=== PATIENT | female | born 1955 | race Native Hawaiian/Other Pacific Islander ===

== ENCOUNTER → 2021-01-07 15:26 | Outpatient (CLI) | payer BC, SELFPAY ==
--- NOTE | 2021-01-07 15:32 | RAD_ITS ---
STUDY: X-RAY CHEST REASON FOR EXAM: Female, 65 years old. increased dyspnea and cough, Hx lung CA TECHNIQUE: PA and lateral views of the chest. COMPARISON: None. FINDINGS: Small right pleural effusion. Airspace disease in the right parahilar region is suspicious for malignancy, as per patient history. Superimposed postobstructive pneumonia cannot be excluded without prior comparison studies. Mild patchy airspace disease on the left is suspicious for pneumonia. Normal size heart. Normal mediastinum and ciera. Normal visualized pulmonary arteries. Normal visualized aortic arch and descending thoracic aorta. Normal visualized thoracic spine. Normal visualized ribs, clavicles, and shoulders. There is no demonstrated abnormality of the visualized soft tissue structures of the upper abdomen. RAD/Chest PA and Lateral IMPRESSION: 1. Small right pleural effusion. 2. Airspace disease on the right is consistent with known malignancy with possible superimposed pneumonia. 3. Patchy airspace disease on the left is suspicious for pneumonia. Electronically Signed: Tammi Barros MD at 16:33 EST Tel , Service support ,
--- NOTE | 2021-01-07 15:33 | RAD_ITS ---
STUDY: X-RAY CHEST REASON FOR EXAM: Female, 65 years old. increased cough and dyspnea, Hx lung CA - chemo TECHNIQUE: Bilateral decubitus views. COMPARISON: None. FINDINGS: Moderate, freely layering right pleural effusion. No left effusion. Right parahilar opacity suspicious for reported malignancy. Superimposed/postobstructive pneumonia is not excluded. Patchy opacities in the left lung are suspicious for pneumonia, better demonstrated on PA chest. Normal size heart. Normal mediastinum and ciera. Normal visualized aortic arch and descending thoracic aorta. RAD/Special CXR (Obl/Decub/A/L) IMPRESSION: 1. Layering right pleural effusion. 2. Presumed right parahilar malignancy with possible superimposed pneumonia. 3. Probable pneumonia on the left. Electronically Signed: Tammi Barros MD at 16:35 EST Tel , Service support ,
== END ==
PROVIDERS: PCP Internal Medicine; Referring Provider Internal Medicine Pulmonary Disease; Visit Provider Internal Medicine Pulmonary Disease
DX: R06.00 Dyspnea, unspecified (principal); R05 Cough
CPT/HCPCS: 71046

== ENCOUNTER → 2021-01-08 15:59 | Outpatient (CLI) | payer BC, SELFPAY ==
--- NOTE | 2021-01-08 | IMM_PTH ---
PATIENT: HÉCTOR DANIEL LOC: U#:[id number] AGE/SX: 70/F ROOM: RE01/08/[address]: Dr. Ad Bradford MD : 1955 BED: DIS: SPEC #: [id number] RECD: 01/13/21 09:55 STATUS: RYLEE REQ #: [id number] BRUNO: 01/08/21 00:[address]: Ad Bradford V DEPT: IMMUNOHISTOCHEMISTRY RECD BY: Mary Aguirre ENTERED: 01/13/21 09:57 SP TYPE: IMMUNO OTHR DR: Dr. Terrance De La Cruz MD Tissues: THORACIC FLUID Procedures: RCC (add) NAPSIN A (add) [place] Ret (add) CK20 (add) CK5-6 (add) CK7 (add) CK8 (add) GARCÍA-2 (add) HEP PAR (add) MACRO (add) ND (add) TTF1 (add) Vimentin (add) Pankeratin (add) P40 (add) CDX2 (add) ER (initial) PHYSICIAN & INSTITUTION [address] [address] SPECIMEN INFORMATION: Tissue Source: Thoracentesis fluid Clinical Info: Adenocarcinoma lung Specimen Number: [id number] CPT code: 36436, 45262 x16 METHODOLOGY: Deparaffinized sections of prefer/formalin-fixed tissue or PAP/DQ stained slides are incubated with monoclonal/polyclonal antibodies/oligonucleotide probes. Localization is made via biotin free immunoperoxidase method. Appropriate controls are performed and reacted as expected. Results on target cell population are indicated in the following table: RESULTS: ANTIBODY / CLONE RESULT ER (6F11) negative ND (1E2) negative AE1-3 (AE1/AE3/PCK26) positive CK7 (OV-TL12/30) positive CK8 (29jpepP74) positive CK20 (KS20.8) negative GARCÍA-2 (SP21) positive CDX2 (YAD0034N) negative Vimentin (V9) negative Macro (HAM-56) negative TTF-1 (8G7G3/1) positive Napsin A (Rabbit Polyclonal) positive HepPar (OCh1E5) negative RCC (PN-15) negative CALRET (polyclonal) negative CK5-6 (D5 & 1684) negative P40 (BC28) negative These tests were developed and their performance characteristics determined by [facility]. They may not have been cleared or approved by the U.S. Food and Drug Administration. The FDA has determined that such clearance or approval is not necessary. The above immunohistochemical/dualISH markers are ordered and reviewed by the Pathologist. INTERPRETATION: Thoracentesis fluid: Malignant cells present derived from non-small cell carcinoma, favor adenocarcinoma, consistent with lung primary. SJ:isa 01/14/2021
--- NOTE | 2021-01-08 | FLU_PTH ---
PATIENT: HÉCTOR DANIEL LOC: [facility]#:[id number] AGE/SX: 70/F ROOM: RE01/08/[address]: Dr. Ad Bradford MD : 1955 BED: DIS: SPEC #: [id number] RECD: 01/08/21 17:51 STATUS: RYLEE REShin #: [id number] BRUNO: 01/08/21 00:[address]: Ad Bradford V DEPT: CYTOLOGY RECD BY: Markell Romero ENTERED: 01/09/21 07:26 SP TYPE: Fluid OTHR DR: Dr. Terrance De La Cruz MD Tissues: Thyroid gland, NOS Procedures: Special Stain Group II Surgery Specimen Level IV Cytospin Fluid HEADER OPERATION: Thoracentesis right chest PRE-OP DIAGNOSIS: Adenocarcinoma lung TISSUE SUBMITTED: Thoracentesis fluid for cytology DIAGNOSIS CYTOLOGY Thoracentesis fluid for cytology (cytospin and cell block): Malignant cells present derived from non-small cell carcinoma, favor adenocarcinoma, consistent with lung primary. See comment. SJ:isa 01/10/2021 COMMENT Immunohistochemistry ([id number]) supports the above diagnosis. Clinical correlation and appropriate follow up are necessary. CYTOLOGY STUDY Slides are reviewed. CYTOLOGY GROSS Received is 100 ml of yellow cloudy fluid labeled with the patient's name and and designated per the requisition as thoracentesis. Submitted for cytology preparation including cell block. / isa 01/09/2021 TC:0 CPT: 50960, 16236
--- NOTE | 2021-01-08 16:01 | US_ITS ---
PROCEDURE: ULTRASOUND GUIDED THORACENTESIS. DATE: 01/08/2021.. INDICATION: Female, 65 years old. Right pleural effusion. PHYSICIAN: Pulmonary physician PROCEDURE: The risks, benefits, and alternatives to the procedure were explained to the patient. The specific risks of bleeding, infection, and pneumothorax requiring chest tube insertion were discussed and accepted. Written informed consent was obtained. Ultrasonographic evaluation of the right lower pleural space was carried out. An adequate pocket was identified. The patient was placed in the sitting, upright position. The overlying skin was prepped and draped in sterile fashion. 1% lidocaine was administered subcutaneously for local anesthesia. Under ultrasound guidance, a 5 Divehi thoracentesis needle/catheter system was advanced into the right posterior lower pleural fluid collection. Approximately 39 mL of lupillo-colored fluid was drained. The catheter was removed, and a sterile dressing was applied. The patient tolerated the procedure well. A chest x-ray was ordered. US/Thoracentesis W US IMPRESSION: Ultrasound-guided right thoracentesis. Electronically Signed: David Arauz MD at 8:08 EST , Service support ,
--- NOTE | 2021-01-08 17:20 | RAD_ITS ---
STUDY: X-RAY CHEST REASON FOR EXAM: Female, 65 years old. post thora TECHNIQUE: PA and lateral COMPARISON: 01/07/2021 FINDINGS: There are patchy areas of increased opacity in the left upper and lower lobes with more more pronounced atelectasis or infiltrate in the right upper and middle lobes.. There is a tiny right pleural effusion.. Normal size heart. Normal mediastinum and ciera. Normal visualized pulmonary arteries. Normal visualized aortic arch and descending thoracic aorta. Dorsal spine demonstrates degenerative change. Normal visualized ribs, clavicles, and shoulders. There is no demonstrated abnormality of the visualized soft tissue structures of the upper abdomen. Right pleural effusion has decreased in size and there is improved aeration in the right lower lobe since prior study. There is no pneumothorax. RAD/Chest Insp/Exp 2 View IMPRESSION: Interval reduction in size of the right pleural effusion and improved aeration in the right lower lobe status post thoracentesis without evidence for pneumothorax Electronically Signed: Luis Lloyd MD at 18:11 EST , Service support ,
== END ==
PROVIDERS: PCP Internal Medicine; Referring Provider Internal Medicine Pulmonary Disease; Visit Provider Internal Medicine Pulmonary Disease
DX: J90 Pleural effusion, not elsewhere classified (principal)
CPT/HCPCS: 32555; 71046; 88108; 88305; 88313; 88341; 88342

== ENCOUNTER → 2021-01-30 13:00 | Outpatient (CLI) | payer MEDICARE, OTHER, SELFPAY ==
--- NOTE | 2021-01-30 13:05 | US_ITS ---
PROCEDURE: ULTRASOUND GUIDED THORACENTESIS. DATE: 01/30/2021. INDICATION: Female, 66 years old. Right pleural effusion PROCEDURE: The risks, benefits, and alternatives to the procedure were explained to the patient. The specific risks of bleeding, infection, and pneumothorax requiring chest tube insertion were discussed and accepted. Written informed consent was obtained. Ultrasonographic evaluation of the right lower pleural space was carried out. An adequate pocket was identified. The patient was placed in the sitting, upright position. The overlying skin was prepped and draped in sterile fashion. 1% lidocaine was administered subcutaneously for local anesthesia. Under ultrasound guidance, a 5 Estonian thoracentesis needle/catheter system was advanced into the right posterior lower pleural fluid collection. Approximately 1500 mL of lupillo-colored fluid fluid was drained. The catheter was removed, and a sterile dressing was applied. The patient tolerated the procedure well. A chest x-ray was ordered. US/Thoracentesis W US IMPRESSION: Ultrasound-guided right thoracentesis. Electronically Signed: David Arauz MD at 14:47 EDT , Service support ,
[2021-01-30 13:28] VITALS: BP 100/77; BP 105/69; BP 116/85; BP 117/99; PULSE 104; PULSE 95; PULSE 96; PULSE 98; RESP 20; TEMP 36.9; O2SAT 100; O2SAT 98; O2SAT 99
--- NOTE | 2021-01-30 14:20 | RAD_ITS ---
STUDY: X-RAY CHEST REASON FOR EXAM: Female, 66 years old. Post thora; rt side TECHNIQUE: AP inspiration and expiration views. COMPARISON: Comparison is made with prior study of 01/04/2021. FINDINGS: The patient is status post right thoracentesis. No evidence of pneumothorax on the post right thoracentesis images. Stable multiple nodules in the left lung as well as infiltrates in the right lung. RAD/Chest Insp/Exp 2 View IMPRESSION: Status post right thoracentesis. No evidence of pneumothorax. Electronically Signed: David Arauz MD at 14:46 EDT , Service support ,
== END ==
PROVIDERS: PCP Internal Medicine; Visit Provider Internal Medicine Pulmonary Disease
DX: J90 Pleural effusion, not elsewhere classified (principal)
CPT/HCPCS: 32555; 71046

== ENCOUNTER 2021-02-16 20:56 | Inpatient (IN) | payer MEDICARE, OTHER, SELFPAY ==
[2021-02-16] VITALS (7 sets, daily range): BP systolic 129–177; BP diastolic 72–103; PULSE 120–130; RESP 12–34; TEMP 36.6; O2SAT 82–96; BMI 20.1
--- NOTE | 2021-02-16 21:21 | RAD_ITS ---
STUDY: X-RAY CHEST REASON FOR EXAM: Female, 66 years old. Dyspnea TECHNIQUE: Single AP portable view of the chest. COMPARISON: 01/30/2021. FINDINGS: Large right pleural effusion. Extensive right lung opacity consistent with pleural effusion and underlying mass or pneumonia. Patchy opacities in the left lung show no significant change from the prior study. Normal size heart. Soft tissues and bony structures are unremarkable. RAD/Chest 1 View (Portable) IMPRESSION: 1. Large right pleural effusion with underlying mass and/or pneumonia. 2. Opacities in the left lung suspicious for malignancy. Please correlate. Electronically Signed: Tammi Barros MD at 22:21 EDT Tel , Service support ,
--- NOTE | 2021-02-16 21:21 | EKG12_ITS ---
Test Reason : SOB Blood Pressure : / mmHG Vent. Rate : 123 BPM Atrial Rate : 123 BPM P-R Int : 128 ms QRS Dur : 092 ms QT Int : 340 ms P-R-T Axes : 058 258 076 degrees QTc Int : 486 ms Sinus tachycardia Possible Left atrial enlargement Right superior axis deviation Pulmonary disease pattern Abnormal ECG Confirmed by ARELY CARRENO, NGOZI ([id number]), restaurant expeditor PETEY MATTA ([id number]) on 02/19/2021 7:54:09 AM Referred By: MARILYNN Confirmed By:NGOZI MCGEE MD
[2021-02-16 21:33] LABS: Absolute Lymphocyte Count 0.19 X10^3/uL (0.83-4.51); Absolute Neutrophil Count 17.8 X10^3/uL (2.0-7.7); Basophil# 0.03 X10^3/uL; Basophil% 0.2 % (0-1); Eosinophil# 0.06 X10^3/uL; Eosinophils% 0.3 % (0-5); Hematocrit 37.2 % (37-47); Hemoglobin 13.5 g/dL (12.0-15.0); Lymphocyte # 0.19 X10^3/ul (4.0); Mean Corp Hgb Conc 36.3 g/dL (32-36); Mean Corpuscular Hgb 30.5 pg (27.0-32.0); Mean Platelet Vol. 7.9 fl (6.2-12.0); Monocyte# 0.89 X10^3/uL; Monocyte% 4.7 % (0-10); NRBC Flagged by Analyzer 0 % (0-5); Neutrophil # 17.81 X10^3/uL (2.7-7.7); Neutrophil % 93.3 % (47-70); POSITIVE DIFFERENTIAL YES; Platelet Count 353 K/mm3 (150-450); RBC Distribution Width CV 13.8 % (11.6-14.6); RBC Distribution Width SD 42.6 fl (35.1-43.9); Red Blood Count 4.43 M/mm3 (4.2-5.4); White Blood Count 19.1 K/mm3 (4.4-11.0)
[2021-02-16] MEDS: Ipratropium/Albuterol Sulfate 3 ML AMPUL.NEB INHALATION (21:37)
[2021-02-16 22:22] LABS: Differential Indicated SCAN CRITERIA MET
[2021-02-16 22:30] LABS: ALB/GLOB Ratio 0.7 RATIO (0.9-2.4); AST(SGOT) 37 U/L (15-37); Alanine Aminotransfer ALT/SGPT 34 U/L (13-56); Albumin, Serum 2.6 g/dL (3.2-5.0); Alkaline Phosphatase 132 U/L (45-117); Anion Gap 10 (5-15); BUN 17 mg/dL (7-18); Calcium,Total 6.8 mg/dL (8.5-10.1); Creatinine, Serum 0.45 mg/dL (0.55-1.02); EST Glomerular Filtration Rate 150 mL/min (>60); Est Glom Filt Rate - Afr Amer 181 mL/min (>60); Estimated Creatinine Clearance 98.17 ml/min; Globulin 3.5 g/dL (2.2-4.2); Glucose 196 mg/dL (74-106); Potassium 3.5 mmol/L (3.5-5.1); Protein, Total 6.1 g/dL (6.4-8.2)
[2021-02-16 22:33] LABS: Sodium Level 110 mmol/L (136-145)
[2021-02-16 22:34] LABS: Chloride 74 mmol/L (98-107)
[2021-02-16 22:38] LABS: Lactic Acid 2.4 mmol/L (0.4-1.9)
[2021-02-16 22:42] LABS: International Normalized Ratio 1.2; Prothrombin Time (Protime)PT. 14.5 SECONDS (11.7-14.9)
[2021-02-16 22:43] LABS: Partial Thromboplast Time 31.7 Seconds (24.1-36.2)
--- NOTE | 2021-02-16 22:52 | ED.VISSUMM ---
- ER Visit Summary Date of Service: 02/16/21 Chief Complaint: Shortness of breath History of Present Illness: The patient is a 66 F who presents with shortness of breath that became worse today. Patient states it is gradually getting worse. Patient states it is worse with any exertion and with laying flat. Patient states it improves with oxygen. Patient states she has a history of lung cancer and prior pleural effusions. She states she did have a recent thoracentesis. Patient states that she feels like this is another large pleural effusion. Patient denies any fevers or chills. Patient denies any chest pain. Patient does admit to a cough with some clear sputum. Patient denies any nausea or vomiting. Physical Examination: Vital signs are stable except for tachycardia of 130 and tachypnea of 34. Pulse oximeter is 82% on 4 L nasal cannula. Patient was immediately bumped to 50% Ventimask. Patient was then increased to a nonrebreather mask. Oral mucosa is pink and moist. Neck is supple. Trachea is midline. There is moderate JVD. Heart was regular and tachycardic. Lungs are diminished on the right. Abdomen is soft. Bowel sounds are normal. There is no tenderness. Extremities are intact. There is no calf tenderness. There is trace edema bilaterally. Cranial nerves II through XII are intact. There are no focal motor or sensory deficits noted. Test Results: EKG was obtained. On my interpretation, it showed a sinus tachycardia of 123. SC interval, QRS interval, and QTc interval were normal. [place] was normal. There are no acute ST or T wave changes. CBC shows a leukocytosis of 19.1. Comprehensive metabolic profile shows a sodium of 110 and chloride of 74. Glucose was slightly elevated at 196. Creatinine was 0.45. Alk phos was slightly elevated 132. Troponin was slightly elevated at 0.223. Chest x-ray was obtained. Is 1 view. On my interpretation, there is a large right pleural effusion. There are also left lung opacity suspicious for malignancy. There is no cardiomegaly. Bony thorax is normal. Radiologist also interpreted the x-ray and agrees. Emergency Department Course and Treatment: Patient was given a DuoNeb aerosol. Patient was increased to nonrebreather mask. Patient was then placed on BiPAP. Patient was given 3% hypertonic saline. Patient was cussed with the hospitalist. He will admit the patient to ICU. Patient and family understood and were agreeable with the plan. All questions were answered. Disposition: Admit to ICU Impression: 1. Right pleural effusion 2. Hypoxia 3. Hyponatremia 4. Leukocytosis 5. Elevated troponin 6. History of lung cancer Critical care time: 30 minutes. This was time spent obtaining history, performing physical examination, documenting, interpreting test results, discussion with consultants, and determining disposition. This note was generated with No[employer] Traveller dictation software. It may contain incorrect words, spelling, and punctuation that were not noted in review of the chart prior to signing ED Disposition - Plan for ED Patient: Disposition: Acute Care Hospital [facility] Diagnosis: Pleural effusion on right, Hypoxia, Hyponatremia, Leukocytosis, Elevated troponin, Lung cancer Referrals: Terrance De La Cruz MD [Primary Care Provider] -
[2021-02-16] MEDS: Sodium Chloride 3% 500 ML 60 ML IV (23:01)
--- NOTE | 2021-02-16 23:07 | HP.PCM_ITS ---
Problem List (1) Elevated troponin Status: Acute (2) Hyponatremia Status: Acute (3) Hypoxia Status: Acute (4) Leukocytosis Status: Acute (5) Lung cancer Status: Chronic (6) Pleural effusion on right Status: Acute History of Present Illness Date of Admission: 02/16/21 Chief Complaint: Shortness of breath The patient is a 66 year old F with a significant history of lung cancer who presents to the emergency department with 2-day history of progressively worsening shortness of breath. Associated with his symptoms is productive cough of clear sputum. Further, she feels weak; she has poor appetite and she is fatigued. Chronically she get thoracentesis for pleural effusion. Her last thoracentesis was about 4 days ago. She felt relieved after her past thoracentesis. She correlates her symptoms with episodes where she had pleural effusion. At emergency department on 4 L patient oxygen saturation was 83%. She was transitioned to Venturi mask and then to nonrebreather max and finally onto BiPAP. She has lung cancer and she is enrolled in clinical trials at [facility] in [place]. Her next appointment with the [facility] is on 02/18/2021 She follows up locally with Dr. Bradford, logistics operations manager. Past Medical History Past Medical History (Chronic Problems): Chronic Problems (Last Reviewed 02/16/21 @ 23:[address] Eduardo Jones MD) Lung cancer (Chronic) Medical History: Medical History (Last Reviewed 02/17/21 @ 05:[address] Eduardo Jones MD) Lung cancer C34.90 Allergies No Known Allergies Allergy (Verified 02/16/21 21:00) Home Medications: Ambulatory Orders Medication Instructions Recorded Calcium Carbonate [Oyster Shell 1 tablet PO DAILY 02/16/21 Calcium] Diltiazem HCl [Cartia Xt] 1 tablet PO DAILY 02/16/21 Levothyroxine [Synthroid] 88 mcg PO DAILY 02/16/21 Metoprolol Succinate 25 mg PO DAILY 02/16/21 Surgical History: - - Thyroidectomy Smoking Status: Never smoker - *Family History Maternal History Items: Cancer Paternal History Items: - - Denies knowledge of paternal medical history. Reportedly her father was tortured to in outside country. Review of Systems Constitutional: Reports: Anorexia, Weakness, Fatigue. Denies: Chills, Fever, Weight Change HEENT: Denies: Head Aches, Sinus Congestion, Sinus Drainage Cardiovascular: Reports: Edema. Denies: Chest Pain, Palpitations Respiratory: Reports: Cough, Shortness of Breath, Sputum production Gastrointestinal: Denies: Abdominal Pain, Nausea, Vomiting Genitourinary: Denies: Dysuria Musculoskeletal: Denies: Joint Pain, Joint Tenderness Skin: Denies: Rash, Wounds Neurological: Denies: Numbness, Tingling, Focal weakness Psychiatric: Denies: Anxiety, Depression, Homicidal Ideations, Suicidal Ideations Hematologic/ Lymphatic: Denies: Easy Bruising, Easy Bleeding VTE Information - Inpt Only VTE Present on Admission: No VTE Mechan Device Prophylaxis: SCD's VTE Pharm Prophylaxis ordered?: No Patient Problems: Active and Suspected Problems (Last Reviewed 02/16/21 @ 23:[address] Eduardo Jones MD) Pleural effusion on right (Acute) Hypoxia (Acute) Hyponatremia (Acute) Leukocytosis (Acute) Elevated troponin (Acute) - Physical Exam Vitals/I&O's: Vital Signs Temp Pulse Resp BP Pulse Ox 98 F 122 H 25 H 177/103 H 95 02/16/21 23:00 02/16/21 23:00 02/16/21 23:00 02/16/21 23:00 02/16/21 23:00 Oxygen Flow Rate (L/min) 14 Oxygen Delivery Method Bi-pap Weight: 49.895 kg Body Mass Index (BMI) 20.1 General: Alert, Oriented x3, Cooperative HEENT: Atraumatic, PERRLA, EOMI, Normocephalic Neck: Supple, No JVD, Negative Carotid Bruits Lungs: Diminished - Posterior right middle to lower lung mcgowan, Tachypneic Cardiovascular: Regular rate, Normal S1, Normal S2, No murmurs, Tachycardic Abdomen: Bowel Sounds Present, Soft, Non Tender Extremities: No edema, Capillary Refill Less than 3 Seconds Skin: No rashes, No breakdown Musculoskeletal: No Tenderness to Palpation of Joints or Extremities Neurological: Cranial nerves II-XII grossly intact Psych/Mental Status: Normal Affect, Appropriate Microbiology Past 72 Hours 02/16/21 22:05 Mucosa - Nose SARS-CoV-2 Antigen (Rapid) - Final Laboratory Results 02/16/21 21:13: WBC 19.1 H, RBC 4.43, Hgb 13.5, Hct 37.2, MCV 84.0, MCH 30.5, MCHC 36.3 H, RDW Std Deviation 42.6, RDW Coeff of Gina 13.8, Plt Count 353, MPV 7.9, Immature Gran % (Auto) 0.500, Neut % (Auto) 93.3 H, Lymph % (Auto) 1.0 L, Morrison % (Auto) 4.7, Eos % (Auto) 0.3, Baso % (Auto) 0.2, Absolute Neuts (auto) 17.8 H, Absolute Lymphs (auto) 0.19 L, Nucleated RBC % 0 02/16/21 21:13: PT 14.5, INR 1.2, APTT 31.7 02/16/21 21:13: Sodium 110 L*, Potassium 3.5, Chloride 74 L*, Carbon Dioxide 26.0, Anion Gap 10, BUN 17, Creatinine 0.45 L, Estim Creat Clear Calc 98.17, Est GFR (MDRD) Af Amer 181, Est GFR (MDRD) Non-Af 150, BUN/Creatinine Ratio 38.0 H, Glucose 196 H, Calcium 6.8 L, Total Bilirubin 0.80, AST 37, ALT 34, Alkaline Phosphatase 132 H, Troponin I 0.223 H, Total Protein 6.1 L, Albumin 2.6 L, Globulin 3.5, Albumin/Globulin Ratio 0.7 L 02/16/21 21:13: Lactic Acid 2.4 H* 02/16/21 21:13: B-Natriuretic Peptide 164.0 H Current Medications Sodium Chloride (Sodium Chloride 3%) 500 mls @ 60 mls/hr IV .Q8H20M NIKIA Last Admin: 02/16/21 23:01 Dose: 60 mls/hr Documented by: Sodium Chloride (Sodium Chloride 3%) 500 mls @ 50 mls/hr IV .Q10H NIKIA Assessment/Plan All Active Problems (Last Reviewed 02/16/21 @ 23:[address] Eduardo Jones MD) Pleural effusion on right (Acute) Hypoxia (Acute) Hyponatremia (Acute) Leukocytosis (Acute) Elevated troponin (Acute) The patient is a 66 year old F with a significant history of lung cancer; recurrent pleural effusion who gets frequent thoracentesis presenting to the emergency department with 2-day history of progressively worsening shortness of breath and found to have recurrent pleural effusion; and required BiPAP. Acute hypoxemic respiratory failure secondary to recurrent pleural effusion. Patient with acute hypoxemia and requiring BiPAP at emergency department. BiPAP continued. Impression of chest x-ray by radiology: Large right pleural effusion with underlying mass and/or pneumonia. Opacities in the left lung suspicious for malignancy. Actual chest x-ray image was independently interpreted. I agree with radiologist interpretation. However although patient has leukocytosis she does not have a fever or chills. Unlikely pneumonia. Ultrasound therapeutic paracentesis ordered. Hyponatremia and hypochloremia Review of medical department labs showed sodium of 110; and chloride of 74. Like secondary to lung cancer. Review of old record shows no BMP on file at the hospital. Began on normal saline at 60 mL/h at emergency department. Would de-escalate to normal saline 40 mL/h and check BMP every 4 hours. Lactic acidosis Likely secondary to hypoxemia Trend Elevated troponin Troponin presentation was 0.223. Actual image of EKG reviewed. EKG with sinus tachycardia and nonspecific abnormalities. Likely secondary to demand from hypoxemia. Trend troponin Neutrophilic leukocytosis Likely stress response. Trend. Hypocalcemia Calcium level of 6.8. Albumin level of 2.6. Corrected calcium is 7.9. 1 g of calcium gluconate ordered. Home calcium carbonate continued Trend BMP. Small cell lung cancer Continue outpatient follow-up. Hypertension Blood pressure is not within goal Metoprolol and Cardizem continued continued. As needed labetalol ordered. Trend blood pressure and adjust blood pressure medications. Hypothyroidism Patient with a history of goiter status post thyroidectomy. Reportedly parathyroid gland is in place Synthroid continued DVT prophylaxis SCD ordered. No chemical thromboprophylaxis in the setting of patient being a candidate for thoracentesis Inpatient E&M: 07657 Init Hosp L3
[2021-02-17] VITALS (54 sets, daily range): BP systolic 85–209; BP diastolic 45–121; PULSE 85–124; RESP 12–34; TEMP 35.9–37.8; O2SAT 70–98; BMI 20.7; BMI 20.8
--- NOTE | 2021-02-17 | IMM_PTH ---
PATIENT: HÉCTOR DANIEL LOC: ICU U#:[id number] AGE/SX: 66/F ROOM: ICU03 RE02/16/[address]: Dr. Sofya Bustillos MD : 1955 BED: 1 DIS: 02/18/2021 SPEC #: [id number] RECD: 02/18/21 10:24 STATUS: SOUVonda REQ #: [id number] BRUNO: 02/17/21 00:[address]: Vahid Mullen DEPT: IMMUNOHISTOCHEMISTRY RECD BY: Mary Aguirre ENTERED: 02/18/21 10:26 SP TYPE: IMMUNO OTHR DR: MD Dr. Terrance Mares MD Dr. Eric Lo, MD Dr. Joseph Agyepong, MD Dr. Nana Yaa Koram, MD Tissues: THORACIC FLUID Procedures: RCC (add) NAPSIN A (add) CK20 (add) CK5-6 (add) CK7 (add) CK8 (add) GARCÍA-2 (add) HEP PAR (add) P53 (add) TTF1 (add) Pankeratin (initial) P40 (add) PSAP (add) S-100 (add) PHYSICIAN & [place] [id number] SPECIMEN INFORMATION: Tissue Source: Thoracentesis fluid Clinical Info: Pleural effusion Specimen Number: [id number] CPT code: 48363, 59149 x13 METHODOLOGY: Deparaffinized sections of prefer/formalin-fixed tissue or PAP/DQ stained slides are incubated with monoclonal/polyclonal antibodies/oligonucleotide probes. Localization is made via biotin free immunoperoxidase method. Appropriate controls are performed and reacted as expected. Results on target cell population are indicated in the following table: RESULTS: ANTIBODY / CLONE RESULT AE1-3 (AE1/AE3/PCK26) positive CK7 (OV-TL12/30) positive CK8 (25kjosX40) positive CK20 (KS20.8) negative GARCÍA-2 (SP21) positive S-100 (4C4.9) negative TTF-1 (8G7G3/1) positive Napsin A (Rabbit Polyclonal) positive HepPar (OCh1E5) negative RCC (PN-15) negative PSAP (PASE/4LJ) negative CK5-6 (D5 & 1684) negative P40 (BC28) negative P53 (DO-7) positive, 2% These tests were developed and their performance characteristics determined by [facility]. They may not have been cleared or approved by the U.S. Food and Drug Administration. The FDA has determined that such clearance or approval is not necessary. The above immunohistochemical/dualISH markers are ordered and reviewed by the Pathologist. INTERPRETATION: Thoracentesis fluid: Metastatic non-small cell carcinoma (adenocarcinoma) of lung origin. AM:isa 02/19/2021
--- NOTE | 2021-02-17 | FLU_PTH ---
PATIENT: HÉCTOR DANIEL LOC: ICU U#:[id number] AGE/SX: 66/F ROOM: ICU03 RE02/16/[address]: Dr. Sofya Bustillos MD : 1955 BED: 1 DIS: 02/18/2021 SPEC #: [id number] RECD: 02/17/21 12:02 STATUS: SOUT REQ #: [id number] BRUNO: 02/17/21 00:[address]: Vahid Mullen DEPT: CYTOLOGY RECD BY: Markell Romero ENTERED: 02/17/21 12:02 SP TYPE: Fluid OTHR DR: MD Dr. Terrance Mares MD Dr. Eric Lo, MD Dr. Joseph Agyepong, MD Dr. Nana Yaa Koram, MD Tissues: THORACIC FLUID Procedures: Special Stain Group II Surgery Specimen Level IV Cytospin Fluid Comments: @ Ordering doctor for SSII edited from to DR.[email or web address] Parkinson by [email or web address] at 02/17/21 1303 @ Ordering doctor for SUIV edited from to @ by RGOOD at 02/17/21 1303 @ Ordering doctor for CYSPIN edited from to @ by RGOOD at 02/17/21 1303 @ Submitting doctor edited from to @ by RGOOD at 02/17/21 1303 HEADER OPERATION: Right thoracentesis PRE-OP DIAGNOSIS: Pleural effusion TISSUE SUBMITTED: Thoracentesis fluid for cytology DIAGNOSIS CYTOLOGY Thoracentesis fluid for cytology (cytospin and cell block): Positive for malignant cells. Non-small cell carcinoma. See comment. AM:isa 02/18/2021 COMMENT Immunohistochemistry ([id number]) supports the above diagnosis and is consistent with metastatic lung carcinoma. Clinical correlation is suggested. Case has been reviewed in consultation with Dr. Bearden who concurs with the above diagnosis. IDC:SJ CYTOLOGY STUDY Slides are reviewed. CYTOLOGY GROSS Received is 100 ml of yellow cloudy fluid labeled with the patient's name and and designated per the requisition as thoracentesis. Submitted for cytology preparation including cell block. / isa 02/17/2021 TC:0 CPT: 91857, 04373
--- NOTE | 2021-02-17 00:10 | NURSING ---
Pt received in to ICU rm 3, moved self from ER stretcher to bed; assisted to BSC for void and back to bed. Pt able to communicate clearly.
--- NOTE | 2021-02-17 00:17 | US_ITS ---
INDICATION: Large R Pleural effusion EXAMINATION: IR Thoracentesis needle or catheter, aspiration with imaging Procedure: Informed consent was obtained from the patient for the procedure. The site for skin puncture was determined under ultrasound guidance. The skin of the right back was prepped and draped in usual sterile fashion. The skin and subcutaneous tissues were then anesthetized with 1% LIDOCAINE. Thoracentesis catheter was advanced into the pleural space with removal of 1650 cc of clear straw-colored fluid. Post procedural chest x-ray demonstrated a 30% pneumothorax, likely ex vacuo. US/Thoracentesis W US IMPRESSION: Successful image guided thoracentesis. Postprocedural pneumothorax. Electronically Signed: Rosas Holbrook MD at 12:08 EDT Tel , Service support ,
[2021-02-17] MEDS: Calcium Gluconate 1 GM/10 ML Vial IV (00:35)
[2021-02-17] MEDS: 0.9% Normal Saline 1,000 ML 40 ML IV (00:41)
[2021-02-17 01:00] LABS: Anion Gap 9 (5-15); BUN 17 mg/dL (7-18); BUN/Creat Ratio 38.3 RATIO (10-20); Calcium,Total 6.9 mg/dL (8.5-10.1); Chloride 76 mmol/L (98-107); Creatinine, Serum 0.44 mg/dL (0.55-1.02); EST Glomerular Filtration Rate 151 mL/min (>60); Est Glom Filt Rate - Afr Amer 183 mL/min (>60); Estimated Creatinine Clearance 100.82 ml/min; Glucose 163 mg/dL (74-106); Potassium 3.5 mmol/L (3.5-5.1); Sodium Level 111 mmol/L (136-145)
[2021-02-17 01:27] LABS: Reflex Lactate? Y
[2021-02-17 01:43] LABS: Lactic Acid 1.9 mmol/L (0.4-1.9)
[2021-02-17] MEDS: Labetalol (Prefilled) 20 MG/4 ML 10 MG IV (01:59)
[2021-02-17 05:07] LABS: Basophil# 0.02 X10^3/uL; Basophil% 0.1 % (0-1); Hemoglobin 12.9 g/dL (12.0-15.0); Lymphocyte % 1.1 % (19-41); Mean Corp Hgb Conc 36.9 g/dL (32-36); Mean Corpuscular Hgb 30.9 pg (27.0-32.0); Mean Corpuscular Volume 83.7 fL (81-99); Mean Platelet Vol. 8.1 fl (6.2-12.0); Monocyte# 0.67 X10^3/uL; Monocyte% 3.7 % (0-10); NRBC Flagged by Analyzer 0 % (0-5); Neutrophil # 17.01 X10^3/uL (2.7-7.7); Neutrophil % 94.6 % (47-70); POSITIVE DIFFERENTIAL YES; Platelet Count 299 K/mm3 (150-450); RBC Distribution Width CV 13.8 % (11.6-14.6); RBC Distribution Width SD 42.2 fl (35.1-43.9); Red Blood Count 4.18 M/mm3 (4.2-5.4)
[2021-02-17] MEDS: 0.9% Saline Lock 10 ML Syringe IV ×3 (05:07→13:04)
[2021-02-17 05:08] LABS: Differential Indicated SCAN CRITERIA MET
[2021-02-17] MEDS: Levothyroxine 88 MCG Tablet PO (05:08)
[2021-02-17 05:26] LABS: Anion Gap 10 (5-15); BUN 16 mg/dL (7-18); BUN/Creat Ratio 40.9 RATIO (10-20); Calcium,Total 6.9 mg/dL (8.5-10.1); Chloride 77 mmol/L (98-107); Creatinine, Serum 0.39 mg/dL (0.55-1.02); EST Glomerular Filtration Rate 175 mL/min (>60); Est Glom Filt Rate - Afr Amer 211 mL/min (>60); Estimated Creatinine Clearance 113.74 ml/min; Glucose 162 mg/dL (74-106); Potassium 3.9 mmol/L (3.5-5.1); Sodium Level 113 mmol/L (136-145)
--- NOTE | 2021-02-17 05:49 | CON.PCM_ITS ---
Reason for Consult Date of Consultation: 02/17/21 Reason for Consultation: Acute respiratory failure, pleural effusion, hy ponatremia History of Present Illness: The patient is a 66-year-old female, with a history as outlined below, who presented to the emergency department on February 16 with complaints of shortness of breath. Patient has a history of primary lung cancer with malignant pleural effusion. She reports that she sees an oncologist through the [facility] in [place] and is currently enrolled in a clinical trial in [place]. The patient has had a recurrent pleural effusion, requiring thoracentesis, most recently as January 30. The thoracenteses in the past have provided symptom relief to the patient. During her last thoracentesis on January 30, 1.5 L of fluid was removed. Pleural fluid cytology dated January 13 was positive for non-small cell carcinoma, favor adenocarcinoma. On presentation to the emergency department, the patient was noted to be afebrile but was tachycardic and tachypneic. Laboratory evaluation revealed an elevated white blood cell count to 19,000. Sodium was low at 110 with a chloride of 74. Lactate was elevated to 2.4. Troponin was increased to 0.223, which has climbed to 1.7 this morning. BNP was elevated to 164. The patient initially was placed on a 3% saline infusion. However, that order was discontinued on arrival to the ICU and the patient was placed on normal saline at only 40 cc/h. The patient never received antimicrobials. The patient was placed on BiPAP therapy and subsequently admitted to the medical intensive care unit for further management. Past Medical History Past Medical History (Chronic Problems): Chronic Problems (Last Reviewed 02/17/21 @ 13:[address] Aldo Hardy MD) Lung cancer (Chronic) Medical History: Medical History (Last Reviewed 02/17/21 @ 13:[address] Aldo Hardy MD) Lung cancer C34.90 Allergies No Known Allergies Allergy (Verified 02/16/21 21:00) Home Medications: Ambulatory Orders Medication Instructions Recorded Calcium Carbonate [Oyster Shell 1 tablet PO DAILY 02/16/21 Calcium] Diltiazem HCl [Cartia Xt] 1 tablet PO DAILY 02/16/21 Levothyroxine [Synthroid] 88 mcg PO DAILY 02/16/21 Metoprolol Succinate 25 mg PO DAILY 04/04/21 Surgical History: - - Thyroidectomy Smoking Status: Never smoker Tobacco Use: Non-smoker - *Family History Maternal History Items: Cancer Paternal History Items: - - Denies knowledge of paternal medical history. Reportedly her father was tortured to in outside country. Review of Systems Constitutional: Reports: Fatigue. Denies: Chills, Fever Eyes: Denies: Blurred vision, Double vision HEENT: Denies: Head Aches, Sinus Congestion, Sinus Drainage Cardiovascular: Denies: Chest Pain, Palpitations Respiratory: Reports: Cough, Shortness of Breath Gastrointestinal: Denies: Abdominal Pain, Nausea, Vomiting Genitourinary: Denies: Dysuria Musculoskeletal: Denies: Joint Pain, Joint Tenderness Skin: Denies: Rash, Wounds Neurological: Denies: Numbness, Tingling, Focal weakness Psychiatric: Denies: Anxiety, Depression, Homicidal Ideations, Suicidal Ideations Hematologic/ Lymphatic: Reports: Anemia Patient Problems: Active and Suspected Problems (Last Reviewed 02/17/21 @ 13:[address] Aldo Hardy MD) Pleural effusion on right (Acute) Hypoxia (Acute) Hyponatremia (Acute) Leukocytosis (Acute) Elevated troponin (Acute) Objective: The patient's most recent lab work, culture data and imaging studies have all been personally reviewed. Rapid coronavirus antigen testing was negative. Blood cultures are pending. - Physical Exam Vitals/I&O's: Vital Signs Temp Pulse Resp BP Pulse Ox 97.6 F L 106 H 27 H 142/93 H 92 02/17/21 04:00 02/17/21 05:00 02/17/21 05:00 02/17/21 05:00 02/17/21 05:00 Oxygen Flow Rate (L/min) 14 Oxygen Delivery Method Bi-pap Weight: 113 lb 8.609 oz Body Mass Index (BMI) 20.7 Intake and Output for Last 24 Hours 02/15/21 02/16/21 02/17/21 23:59 23:59 23:59 Intake Total 275 / 275 Output Total 550 / 550 Balance -275 / -275 General: Alert, Cooperative, - - Short of breath in appearance on BiPAP HEENT: Atraumatic, Normocephalic Oral: Dry Mucosa Neck: Supple, No Nodes, Trachea Midline Lungs: Diminished, Rales, Tachypneic, - - Dullness to percussion of right base Cardiovascular: Normal S1, Normal S2, Tachycardic Abdomen: Bowel Sounds Present, Soft, Non Tender Extremities: No clubbing, No cyanosis, No edema Skin: No breakdown Musculoskeletal: No Tenderness to Palpation of Joints or Extremities Lymphatic: No Cervical, Supraclavicular, or Inguinal Adenopathy Neurological: Cranial nerves II-XII grossly intact, Neuro grossly intact Psych/Mental Status: Normal Affect Labs (Last 48 Hours) 02/16/21 02/16/21 02/16/21 21:13 21:13 21:13 WBC 19.1 H RBC 4.43 Hgb 13.5 Hct 37.2 MCV 84.0 MCH 30.5 MCHC 36.3 H RDW Std Deviation 42.6 RDW Coeff of Gina 13.8 Plt Count 353 MPV 7.9 Immature Gran % (Auto) 0.500 Neut % (Auto) 93.3 H Lymph % (Auto) 1.0 L Stokes % (Auto) 4.7 Eos % (Auto) 0.3 Baso % (Auto) 0.2 Absolute Neuts (auto) 17.8 H Absolute Lymphs (auto) 0.19 L Nucleated RBC % 0 PT 14.5 INR 1.2 APTT 31.7 Sodium 110 L* Potassium 3.5 Chloride 74 L* Carbon Dioxide 26.0 Anion Gap 10 BUN 17 Creatinine 0.45 L Estim Creat Clear Calc 98.17 Est GFR (MDRD) Af Amer 181 Est GFR (MDRD) Non-Af 150 BUN/Creatinine Ratio 38.0 H Glucose 196 H Lactic Acid Calcium 6.8 L Total Bilirubin 0.80 AST 37 ALT 34 Alkaline Phosphatase 132 H Troponin I 0.223 H B-Natriuretic Peptide Total Protein 6.1 L Albumin 2.6 L Globulin 3.5 Albumin/Globulin Ratio 0.7 L 02/16/21 02/16/21 02/17/21 21:13 21:13 00:30 WBC RBC Hgb Hct MCV MCH MCHC RDW Std Deviation RDW Coeff of Gina Plt Count MPV Immature Gran % (Auto) Neut % (Auto) Lymph % (Auto) Stokes % (Auto) Eos % (Auto) Baso % (Auto) Absolute Neuts (auto) Absolute Lymphs (auto) Nucleated RBC % PT INR APTT Sodium 111 L* Potassium 3.5 Chloride 76 L Carbon Dioxide 26.0 Anion Gap 9 BUN 17 Creatinine 0.44 L Estim Creat Clear Calc 100.82 Est GFR (MDRD) Af Amer 183 Est GFR (MDRD) Non-Af 151 BUN/Creatinine Ratio 38.3 H Glucose 163 H Lactic Acid 2.4 H* Calcium 6.9 L Total Bilirubin AST ALT Alkaline Phosphatase Troponin I 1.520 H* B-Natriuretic Peptide 164.0 H Total Protein Albumin Globulin Albumin/Globulin Ratio 02/17/21 02/17/21 02/17/21 00:30 05:00 05:00 WBC 18.0 H RBC 4.18 L Hgb 12.9 Hct 35.0 L MCV 83.7 MCH 30.9 MCHC 36.9 H RDW Std Deviation 42.2 RDW Coeff of Gina 13.8 Plt Count 299 MPV 8.1 Immature Gran % (Auto) 0.500 Neut % (Auto) 94.6 H Lymph % (Auto) 1.1 L Stokes % (Auto) 3.7 Eos % (Auto) 0.0 Baso % (Auto) 0.1 Absolute Neuts (auto) 17.0 H Absolute Lymphs (auto) 0.20 L Nucleated RBC % 0 PT INR APTT Sodium 113 L* Potassium 3.9 Chloride 77 L Carbon Dioxide 26.0 Anion Gap 10 BUN 16 Creatinine 0.39 L Estim Creat Clear Calc 113.74 Est GFR (MDRD) Af Amer 211 Est GFR (MDRD) Non-Af 175 BUN/Creatinine Ratio 40.9 H Glucose 162 H Lactic Acid 1.9 Calcium 6.9 L Total Bilirubin AST ALT Alkaline Phosphatase Troponin I 1.770 H* B-Natriuretic Peptide Total Protein Albumin Globulin Albumin/Globulin Ratio Microbiology 02/16/21 22:05 Mucosa - Nose SARS-CoV-2 Antigen (Rapid) - Final Clinical Impression(s) from Imaging Studies Chest X-Ray 02/16/21 21:21 IMPRESSION: 1. Large right pleural effusion with underlying mass and/or pneumonia. 2. Opacities in the left lung suspicious for malignancy. Please correlate. Electronically Signed: Tammi Barros MD at 22:21 EDT Tel , Service support , Current Medications Acetaminophen (Acetaminophen 325 Mg Tablet) 650 mg PO Q6H PRN PRN PRN Reason: Pain Score 1-10/Temp > 100.7 F Albuterol Sulfate (Albuterol 2.5 Mg/3 Ml Vial.Neb.) 2.5 mg INHALATION Q2H PRN PRN PRN Reason: SOB/Wheezing Calcium Carbonate (Calcium (Elemental) 500 Mg Tablet) 500 mg PO DAILYCM [facility] Diltiazem HCl (Diltiazem Cd 180 Mg Capsule) 180 mg PO DAILY [facility] Sodium Chloride () 1,000 mls @ 40 mls/hr IV .Q25H NIKIA Last Admin: 02/17/21 00:41 Dose: 40 mls/hr Documented by: Sodium Chloride () 250 mls @ 15 mls/hr IV .[id number] PRN PRN Reason: Saline Flush Labetalol HCl (Labetalol (Prefilled) 20 Mg/4 Ml) 10 mg IV Q4H PRN PRN PRN Reason: SBP more than 160 Last Admin: 02/17/21 01:59 Dose: 10 mg Documented by: Levothyroxine Sodium (Levothyroxine 88 Mcg Tablet) 88 mcg PO DAILY@0600 [facility] Last Admin: 02/17/21 05:08 Dose: 88 mcg Documented by: Metoprolol Succinate (Metoprolol(Xl)Succ 25 Mg Tablet) 25 mg PO DAILY [facility] Ondansetron HCl (Ondansetron 4 Mg/2 Ml Vial) 4 mg IV Q8H PRN PRN PRN Reason: NAUSEA/VOMITING Senna/Docusate Sodium (Senna/Docusate Sodium 1 Tablet) 2 tablet PO BID PRN PRN PRN Reason: Constipation Senna/Docusate Sodium (Senna/Docusate Sodium 1 Tablet) 2 tablet PO BID [facility] Sodium Chloride (0.9% Saline Lock 10 Ml Syringe) 10 - 40 ml IV UD PRN PRN Reason: SALINE FLUSH Last Admin: 02/17/21 05:07 Dose: 30 ml Documented by: Assessment/Plan Active and Suspected Problems (Last Reviewed 02/17/21 @ 13:[address] Aldo Hardy MD) Pleural effusion on right (Acute) Hypoxia (Acute) Hyponatremia (Acute) Leukocytosis (Acute) Elevated troponin (Acute) RECOMMENDATIONS: 1. Check urine/serum osmolality and urine sodium. 2. Increase normal saline infusion rate. 3. Transition patient from continuous BiPAP to Airvo heated high flow and titrate FiO2 to maintain an oxygen saturation at or above 90%. 4. Consider Pleurx catheter placement, if cleared by the patient's primary oncologist. 5. Start empiric antimicrobials. 6. Check TSH level. 7. Continue to monitor BMP every 4 hours. Continue to trend troponins. 8. Obtain echocardiogram. Cardiology consultation is pending. IMPRESSIONS: 1. Acute hypoxemic respiratory failure The patient has a known history of lung cancer with recurrent malignant pleural effusion, having last undergone a thoracentesis in mid January. The patient's medical oncology history is not known to me. Given that she is currently receiving aggressive treatment and is a full code, I am concerned that the patient's primary oncologist may not wish to have a Pleurx catheter placed. In addition, the patient did present with sepsis criteria and an elevated lactate. Therefore, I would first proceed with performing an ultrasound-guided thoracentesis to ensure that there is no evidence of pleural fluid infection. In the interim, will need to coordinate with the patient's primary oncologist regarding future treatment plan and goals of care. The patient will be started on empiric antimicrobials this morning. An attempt will be made to transition her from BiPAP to heated high flow oxygen, for patient comfort, with a goal to wean FiO2 to maintain oxygen saturations at or above 90%. 2. Severe sepsis While the patient does have a large right-sided pleural effusion, she does also have significant left-sided pulmonary infiltrates, concerning for potential pneumonia or metastatic disease. Given that she presented with clear sepsis criteria and an elevated lactate, I would strongly recommend that she be started empirically on antimicrobials. We will send pleural fluid for infectious work- up as well. Fluids are being managed conservatively given her presenting hyponatremia and concern for overcorrection. 3. Recurrent malignant pleural effusion/history of non-small cell lung cancer Prior to considering Pleurx catheter placement, the patient needs to be worked up from an infectious standpoint. Will attempt to reach out to her oncology team to discuss further. In the interim, ultrasound-guided thoracentesis will be performed to provide symptom relief. 4. Hyponatremia Unclear presenting chronicity. Although the patient was initially being managed on hypertonic saline, she has since been transitioned to regular normal saline with an adjusted infusion rate. Continue to monitor serial BMPs, being cautious to avoid overcorrection. 5. Troponin elevation Potentially related to demand ischemia in the setting of #1 and 2. Cardiology has been consulted to evaluate the patient. Echocardiogram is pending. 6. Hypothyroidism Complicates care, management, recovery and prognosis. Continue home Synthroid accordingly. Check TSH level. UPDATE: I received communication from ICU nursing staff that after her thoracentesis, a pneumothorax was noted. On my evaluation of the patient at the bedside she seemed much more labored from a respiratory perspective and was certainly more hypoxemic. Her chest imaging was subsequently reviewed. There is certainly concern for pneumothorax ex vacuo. I did reach out to general surgery who presented to the bedside and placed a chest tube. There was improvement in the patient's oxygenation status status post tube thoracotomy. I have tried on several occasions now to reach out to the patient's oncologist in [place] without success. TIME: 80 minutes of critical care time, independent of procedures, was spent addressing the patient's acute hypoxemic respiratory failure, severe sepsis, recurrent malignant pleural effusion, history of non-small cell lung cancer, hyponatremia, troponin elevation, review of all data and collaboration with the care team. ([id number], [id number]) Procedures: 79257 Critial Care Addl 30 Min 9xxxx: [id number] Critical care first hour
--- NOTE | 2021-02-17 06:30 | ECHOD_ITS ---
Reason For Study: Dyspnea/SOB Procedure This was a 2D Doppler, Color Flow transthoracic echocardiogram. Exam performed portable in ICU/CCU. Left Ventricle Normal LV size. Moderate concentric left ventricular hypertrophy. Left ventricular systolic function is normal. The estimated ejection fraction is 60 %. Stage 1 diastolic dysfunction. No regional wall motion abnormalities noted. Right Ventricle Moderately dilated right ventricle. Mild to moderate global right ventricular systolic dysfunction. Apical sparing noted. Atria Normal left atrium. Normal right atrium. Mitral Valve Normal mitral valve. Tricuspid Valve Normal tricuspid valve. Moderate (2+) tricuspid valve insufficiency. Pulmonary artery systolic pressure is 60 mmHg. Moderate pulmonary hypertension. Aortic Valve Trisinus/trileaflet aortic valve. Pulmonic Valve Normal pulmonic valve. Mild (1+) pulmonic valve insufficiency. Great Vessels Normal aortic root. The pulmonary artery is normal size. Left pulmonary artery demonstrating increased jet suggestive of stenosis or thrombus such as a pulmonary embolism. Normal inferior vena cava. Pericardium/Pleural Small pericardial effusion. There are no echocardiographic indications of cardiac tamponade. Large left pleural effusion. MMode/2D Measurements & Calculations LVIDd: 3.2 cm IVSd: 1.6 cm Ao root diam: 2.9 cm LVIDs: 1.6 cm LVPWd: 1.2 cm FS: 49.0 % LAV(MOD-bp): 23.5 ml LVAd ap4: 10.6 cm2 SV(MOD-sp4): 14.1 ml LAV(MOD-bp) Indexed: 15.7 ml/m2 EDV(MOD-sp4): 19.2 ml LAV(MOD-sp2): 24.0 ml EDV(sp4-el): 17.8 ml LAV(MOD-sp4): 21.1 ml LVAs ap4: 4.9 cm2 ESV(MOD-sp4): 5.1 ml ESV(sp4-el): 4.7 ml EF(MOD-sp4): 73.6 % EF(sp4-el): 73.9 % SV(sp4-el): 13.2 ml LA A4 area: 9.4 cm2 LA dimension(2D): 2.3 cm RA A4 area: 9.7 cm2 Doppler Measurements & Calculations MV E max bean: 52.8 cm/sec Lat Peak E' Bean: 5.4 cm/sec Med Peak E' Bean: 4.9 cm/sec MV A max bean: 91.7 cm/sec E/E' lat: 9.7 E/E' med: 10.8 MV E/A: 0.58 Ao V2 max: 163.1 cm/sec LV V1 max: 112.1 cm/sec PA V2 max: 256.5 cm/sec Ao max P.6 mmHg LV V1 max P.0 mmHg PA V2 mean: 225.6 cm/sec Ao V2 mean: 111.1 cm/sec PA V2 VTI: 63.8 cm Ao mean P.5 mmHg Ao V2 VTI: 24.7 cm TR max bean: 377.2 cm/sec TR max P.9 mmHg ECHO/Echo Complete Interpretation Summary Normal LV size. Moderate concentric left ventricular hypertrophy. Left ventricular systolic function is normal. The estimated ejection fraction is 60 %. Stage 1 diastolic dysfunction. Moderately dilated right ventricle. Mild to moderate global right ventricular systolic dysfunction. Apical sparing noted Pulmonary artery systolic pressure is 60 mmHg. Moderate pulmonary hypertension. Small pericardial effusion. Large left pleural effusion. Ordering Physician: Vahid Mullen Referring Physician: Terrance De La Cruz Performed By: Justina Loya, ALEX, RVT
--- NOTE | 2021-02-17 06:35 | CPS ---
Started pt on Airvo, titrated to get Sat into the 90's which brought it to 60lpm @85%. Informed RN of settings. pt comfortable.
[2021-02-17 07:44] LABS: Mucous, Urine 0 SEEN /hpf (<or=2+); White Blood Cells 0 SEEN /hpf (0-5)
[2021-02-17 07:45] LABS: Color, Urine Yellow (Yellow); Glucose, Dipstick 100 mg/dl (Normal); Leukocyte Esterase-Dipstick Negative /ul (Negative); Nitrite-Dipstick Negative (Negative); Occult Blood-Urine 250 /ul (Negative); Protein-Dipstick 100 mg/dl (Negative); Urine Bilirubin Dipstick Negative (Negative); Urine Clarity Sl. Cloudy (Clear); Urine Urobilinogen Normal (Normal)
[2021-02-17 07:49] LABS: Urine Sodium 19 mmol/L (Not Establ.)
[2021-02-17 07:51] LABS: Ketone-Dipstick 150 mg/dl (Negative)
[2021-02-17] MEDS: Calcium (Elemental) 500 MG Tablet PO (07:52)
[2021-02-17] MEDS: Metoprolol(XL)Succ 25 MG Tablet PO (07:52)
[2021-02-17] MEDS: dilTIAZem CD 180 MG Capsule PO (07:52)
[2021-02-17 08:00] LABS: Bacteria 1+ /hpf (None Seen); Red Blood Cells-Urine 25-50 SEEN /hpf (0-5); Squamous Epithelial Cells - UA 0-5 SEEN /hpf (5-10)
--- NOTE | 2021-02-17 09:14 | PCM.RX.CS ---
Consult Pharmacy has been consulted to manage selected antiobiotic: Vancomycin Type of Consult: New start Suspected Infection: Sepsis Prior Doses of Antibiotics Received/Current Regimen: Received 1250mg iv x 1 as loading dose. Labs: Sodium 113 mmol/L (136-145) L* 02/17/21 05:00 Potassium 3.9 mmol/L (3.5-5.1) 02/17/21 05:00 Chloride 77 mmol/L (98-107) L 02/17/21 05:00 Carbon Dioxide 26.0 mmol/L (21.0-32.0) 02/17/21 05:00 Anion Gap 10 (5-15) 02/17/21 05:00 BUN 16 mg/dL (7-18) 02/17/21 05:00 Creatinine 0.39 mg/dL (0.55-1.02) L 02/17/21 05:00 Est GFR (MDRD) Af Amer 211 mL/min (>60) 02/17/21 05:00 Est GFR (MDRD) Non-Af 175 mL/min (>60) 02/17/21 05:00 BUN/Creatinine Ratio 40.9 RATIO (10-20) H 02/17/21 05:00 Glucose 162 mg/dL (74-106) H 02/17/21 05:00 Microbiology: Microbiology 02/16/21 22:05 Mucosa - Nose SARS-CoV-2 Antigen (Rapid) - Final Weight used for dosin.5 kg Estimated Creatinine Clearance: >100ml/min Goal Trough: 15-20 mcg/mL Pharmacy Plan for Drug Dosing: Will begin a dosing of 1gm iv q12h starting 12hrs after loading dose this AM. Trough level ordered for 4.6.21 before 4th dose. Pharmacy Service will continue to monitor and adjust dosing as required. Follow-Up Labs: Trough Vancomycin - 4.6.21 @1930 before 2000 dose
[2021-02-17 09:34] LABS: M R Staph aureus DNA By PCR Negative (Negative); Probe Check PASS; Specimen Processing Control PASS
[2021-02-17 10:08] LABS: Osmolality, Urine 526 mOsm/KG
[2021-02-17 10:08] LABS: Osmolality, Serum 249 mOsm/KG (280-301)
--- NOTE | 2021-02-17 10:14 | PN_ITS ---
Patient Problems: Active and Suspected Problems (Last Reviewed 02/17/21 @ 05:[address] Eduardo Jones MD) Pleural effusion on right (Acute) Hypoxia (Acute) Hyponatremia (Acute) Leukocytosis (Acute) Elevated troponin (Acute) Subjective: Patient seen and examined. SHe was admitted with a complaint of shortness of breath, with associated cough productive of clear sputum, as well as weakness and fatigue and anorexia. She does have a history of lung cancer with recurrent pleural effusion for which she needs repeated thoracentesis. Of note, she was also tachycardic and tachypneic as well as had elevated lactic acid on admission as well as leukocytosis. She was also profoundly hyponatremic with sodium of 110 on admission. Troponins were also elevated at 0.223 peaked at 1.7. Patient seen this morning. She remains short of breath. She was quite restless at time of been reviewed. She remained tachycardic and tachypneic. She is due for thoracentesis this morning. SIRS criteria remains 3 out of 4 with tachypnea, tachycardia and elevated white cell count. Vitals/I&O's: Vital Signs Temp Pulse Resp BP Pulse Ox 96.8 F L 111 H 29 H 147/98 H 90 02/17/21 08:00 02/17/21 10:00 02/17/21 10:00 02/17/21 10:00 02/17/21 10:00 Oxygen Flow Rate (L/min) 60 Oxygen Delivery Method Airvo Weight: 113 lb 8.609 oz Body Mass Index (BMI) 20.7 Intake and Output for Last 24 Hours 02/15/21 02/16/21 02/17/21 23:59 23:59 23:59 Intake Total 1246.83 / 1246.83 Output Total 820 / 820 Balance 426.83 / 426.83 General: Alert, Cooperative, - - restless HEENT: Atraumatic, PERRLA, EOMI, Normocephalic Oral: Dry Mucosa Neck: Supple, No JVD, Negative Carotid Bruits Lungs: - - markedly diminished breath sounds in right mid and lower lung mcgowan. Few crackles in left lower lung mcgowan. on 60L of oxygen via AirVo Cardiovascular: Normal S1, Normal S2, No murmurs, Tachycardic Abdomen: Bowel Sounds Present, Soft, Non Tender, Non-Distended, No Hepato- splenomegaly Extremities: No clubbing, No cyanosis, No edema, Capillary Refill Less than 3 Seconds Skin: No rashes, No breakdown Musculoskeletal: No Tenderness to Palpation of Joints or Extremities Lymphatic: No Cervical, Supraclavicular, or Inguinal Adenopathy Neurological: Cranial nerves II-XII grossly intact, Neuro grossly intact, Motor Exam 5/5 strength throughout Psych/Mental Status: Normal Affect, Appropriate, Alert and oriented to time, place, person, mood and affect Microbiology Past 72 Hours 02/16/21 22:05 Mucosa - Nose SARS-CoV-2 Antigen (Rapid) - Final Laboratory Results 02/16/21 21:13: WBC 19.1 H, RBC 4.43, Hgb 13.5, Hct 37.2, MCV 84.0, MCH 30.5, MCHC 36.3 H, RDW Std Deviation 42.6, RDW Coeff of Gina 13.8, Plt Count 353, MPV 7.9, Immature Gran % (Auto) 0.500, Neut % (Auto) 93.3 H, Lymph % (Auto) 1.0 L, Conway % (Auto) 4.7, Eos % (Auto) 0.3, Baso % (Auto) 0.2, Absolute Neuts (auto) 17.8 H, Absolute Lymphs (auto) 0.19 L, Nucleated RBC % 0 02/16/21 21:13: PT 14.5, INR 1.2, APTT 31.7 02/16/21 21:13: Sodium 110 L*, Potassium 3.5, Chloride 74 L*, Carbon Dioxide 26.0, Anion Gap 10, BUN 17, Creatinine 0.45 L, Estim Creat Clear Calc 98.17, Est GFR (MDRD) Af Amer 181, Est GFR (MDRD) Non-Af 150, BUN/Creatinine Ratio 38.0 H, Glucose 196 H, Calcium 6.8 L, Total Bilirubin 0.80, AST 37, ALT 34, Alkaline Phosphatase 132 H, Troponin I 0.223 H, Total Protein 6.1 L, Albumin 2.6 L, Globulin 3.5, Albumin/Globulin Ratio 0.7 L 02/16/21 21:13: Lactic Acid 2.4 H* 02/16/21 21:13: B-Natriuretic Peptide 164.0 H 02/17/21 00:30: Sodium 111 L*, Potassium 3.5, Chloride 76 L, Carbon Dioxide 26.0, Anion Gap 9, BUN 17, Creatinine 0.44 L, Estim Creat Clear Calc 100.82, Est GFR (MDRD) Af Amer 183, Est GFR (MDRD) Non-Af 151, BUN/Creatinine Ratio 38.3 H, Glucose 163 H, Calcium 6.9 L, Troponin I 1.520 H* 02/17/21 00:30: Lactic Acid 1.9 02/17/21 05:00: Sodium 113 L*, Potassium 3.9, Chloride 77 L, Carbon Dioxide 26.0, Anion Gap 10, BUN 16, Creatinine 0.39 L, Estim Creat Clear Calc 113.74, Est GFR (MDRD) Af Amer 211, Est GFR (MDRD) Non-Af 175, BUN/Creatinine Ratio 40.9 H, Glucose 162 H, Calcium 6.9 L, Troponin I 1.770 H* 02/17/21 05:00: WBC 18.0 H, RBC 4.18 L, Hgb 12.9, Hct 35.0 L, MCV 83.7, MCH 30.9, MCHC 36.9 H, RDW Std Deviation 42.2, RDW Coeff of Gina 13.8, Plt Count 299, MPV 8.1, Immature Gran % (Auto) 0.500, Neut % (Auto) 94.6 H, Lymph % (Auto) 1.1 L, Conway % (Auto) 3.7, Eos % (Auto) 0.0, Baso % (Auto) 0.1, Absolute Neuts (auto) 17.0 H, Absolute Lymphs (auto) 0.20 L, Nucleated RBC % 0 02/17/21 07:30: Urine Osmolality 526, Ur Random Sodium 19 02/17/21 07:30: Urine Color Yellow, Urine Clarity Sl. Cloudy, Urine pH 6.0, Ur Specific Oaks 1.020, Urine Protein 100 H, Urine Glucose (UA) 100 H, Urine Ketones 150 H, Urine Occult Blood 250 H, Urine Nitrite Negative, Urine Bilirubin Negative, Urine Urobilinogen Normal, Ur Leukocyte Esterase Negative, Urine RBC 25-50 SEEN, Urine WBC 0 SEEN, Ur Squamous Epith Cells 0-5 SEEN, Urine Bacteria 1+, Urine Mucus 0 SEEN 02/17/21 08:00: MRSA (PCR) Negative 02/17/21 09:15: Sodium Pending, Potassium Pending, Chloride Pending, Carbon Dioxide Pending, Anion Gap Pending, BUN Pending, Creatinine Pending, Est GFR (MDRD) Af Amer Pending, Est GFR (MDRD) Non-Af Pending, BUN/Creatinine Ratio Pending, Glucose Pending, Calcium Pending 02/17/21 09:15: Troponin I Pending 02/17/21 09:15: Lactate Dehydrogenase Pending, Total Protein Pending, TSH Pending 02/17/21 09:15: Serum Osmolality 249 L Diagnostic Data Chest X-Ray 02/16/21 21:21 IMPRESSION: 1. Large right pleural effusion with underlying mass and/or pneumonia. 2. Opacities in the left lung suspicious for malignancy. Please correlate. Electronically Signed: Tammi Barros MD at 22:21 EDT Tel , Service support , Echocardiogram 02/17/21 06:30 Interpretation Summary Normal LV size. Moderate concentric left ventricular hypertrophy. Left ventricular systolic function is normal. The estimated ejection fraction is 60 %. Stage 1 diastolic dysfunction. Moderately dilated right ventricle. Mild to moderate global right ventricular systolic dysfunction. Apical sparing noted Pulmonary artery systolic pressure is 60 mmHg. Moderate pulmonary hypertension. Small pericardial effusion. Large left pleural effusion. Ordering Physician: Vahid Mullen Referring Physician: Terrance De La Cruz Performed By: Justina Loya, RDCS, RVT Current Medications Acetaminophen (Acetaminophen 325 Mg Tablet) 650 mg PO Q6H PRN PRN PRN Reason: Pain Score 1-10/Temp > 100.7 F Albuterol Sulfate (Albuterol 2.5 Mg/3 Ml Vial.Neb.) 2.5 mg INHALATION Q2H PRN PRN PRN Reason: SOB/Wheezing Calcium Carbonate (Calcium (Elemental) 500 Mg Tablet) 500 mg PO DAILYCM [facility] Last Admin: 02/17/21 07:52 Dose: 500 mg Documented by: Diltiazem HCl (Diltiazem Cd 180 Mg Capsule) 180 mg PO DAILY [facility] Last Admin: 02/17/21 07:52 Dose: 180 mg Documented by: Sodium Chloride () 1,000 mls @ 150 mls/hr IV .[id number] [facility] Last Infusion: 02/17/21 10:01 Dose: 150 mls/hr Documented by: Sodium Chloride () 250 mls @ 15 mls/hr IV .[id number] PRN PRN Reason: Saline Flush Last Admin: 02/17/21 07:57 Dose: 15 mls/hr Documented by: Piperacillin Sod/Tazobactam (Sod 3.375 gm/ Sodium Chloride) 50 mls @ 12.5 mls/hr IV Q8 [facility] Vancomycin IV Pharmacy to Dose (1 each/ Sodium Chloride) 500 mls @ 250 mls/hr IV PRN PRN; Protocol PRN Reason: Rx to Dose Vancomycin HCl (Vancomycin) 1,000 mg in 200 mls @ 200 mls/hr IV Q12H [facility] Labetalol HCl (Labetalol (Prefilled) 20 Mg/4 Ml) 10 mg IV Q4H PRN PRN PRN Reason: SBP more than 160 Last Admin: 02/17/21 01:59 Dose: 10 mg Documented by: Levothyroxine Sodium (Levothyroxine 88 Mcg Tablet) 88 mcg PO DAILY@0600 [facility] Last Admin: 02/17/21 05:08 Dose: 88 mcg Documented by: Metoprolol Succinate (Metoprolol(Xl)Succ 25 Mg Tablet) 25 mg PO DAILY [facility] Last Admin: 02/17/21 07:52 Dose: 25 mg Documented by: Ondansetron HCl (Ondansetron 4 Mg/2 Ml Vial) 4 mg IV Q8H PRN PRN PRN Reason: NAUSEA/VOMITING Senna/Docusate Sodium (Senna/Docusate Sodium 1 Tablet) 2 tablet PO BID [facility] Last Admin: 02/17/21 07:53 Dose: Not Given Documented by: Sodium Chloride (0.9% Saline Lock 10 Ml Syringe) 10 - 40 ml IV UD PRN PRN Reason: SALINE FLUSH Last Admin: 02/17/21 07:57 Dose: 20 ml Documented by: STROKE Vital Signs/Narrative: Vital Signs Temp Pulse Resp BP Pulse Ox 02/17/21 10:00 111 H 29 H 147/98 H 90 02/17/21 09:08 110 H 28 H 93 02/17/21 09:00 111 H 22 H 136/81 H 90 02/17/21 08:00 96.8 F L 112 H 28 H 167/94 H 89 02/17/21 07:52 111 H 02/17/21 07:00 109 H 27 H 172/104 H 93 02/17/21 06:35 111 H 26 H 92 Medical Necessity - Tobacco Use Smoking Status: Never smoker Tobacco Use: Non-smoker Assessment/Plan All Active Problems (Last Reviewed 02/17/21 @ 05:[address] Eduardo Jones MD) Pleural effusion on right (Acute) Hypoxia (Acute) Hyponatremia (Acute) Leukocytosis (Acute) Elevated troponin (Acute) #Acute hypoxic respiratory failure due to recurrent pleural effusion * still tachypneic. On 60L of oxygen via AirVo * titraete oxygen to maintain sats>90% * for right sided thoracentesis today * pulmonology on board * #Right recurrent pleural effusion due to lung cancer * as above #Sepsis due to probable pneumonia * SIRS criteria is 3/4 (tachypnea, tachycardia, leucocytosis) * CXR did show a large right pleural effusion with underlying mass and/or pneumonia * wasnt started on antibiotics at admission. Now on IV Zosyn and vancomycin. * blood cultures obtained * UA showed 1+ bacteria; will get urine culture #Elevated troponin * initial troponin was 0.223 and peaked at 1.77 * 2D echo showed moderate concentric LV hypertrophy, with EF of 60%, and moderately dilated RV with mild to moderate global RV systolic dysfunction, with PA systolic pressure of 60mmhg, and small pericardial effusion * CTA of the chest ordered to rule out PE in light of RV dysfunction and elevated troponins * #Hypocalcemia * calcium was 6.8 this morning, down to 6.5. WIll replace with calcium gluconate. Check Mg level * #Hyponatremia * Sodium was 110 on admission; now 113 * was started on normal saline at 60cc/hr on admission. * will consult nephrology * serum chloride is also low, and urine sodium is 19. Urine osmolality is 526 with a low serum osmolality of 249 * cause of hyponatremia is unclear, though the primary diagnosis of cancer could be playing a role; TSH is also pending * await nephro rec's. continue hydration with IVF * #History of small cell lung cancer * sees an oncologist at [facility] in [place], and is also enrolled in a clinical trial in [place] * to follow up with oncologist on outpatient basis. * #Hypertension: on metoprolol and cardizem #Hypothyroidism: on synthroid DVT prophylaxis: SCDs for now. Will await CTA of the chest to determine need for anticoagulation. The patient is a 66 year old F with a significant history of lung cancer; recurrent pleural effusion who gets frequent thoracentesis presenting to the emergency department with 2-day history of progressively worsening shortness of breath and found to have recurrent pleural effusion; and required BiPAP. Acute hypoxemic respiratory failure secondary to recurrent pleural effusion. Patient with acute hypoxemia and requiring BiPAP at emergency department. BiPAP continued. Impression of chest x-ray by radiology: Large right pleural effusion with underlying mass and/or pneumonia. Opacities in the left lung suspicious for malignancy. Actual chest x-ray image was independently interpreted. I agree with radiologist interpretation. However although patient has leukocytosis she does not have a fever or chills. Unlikely pneumonia. Ultrasound therapeutic paracentesis ordered. Hyponatremia and hypochloremia Review of medical department labs showed sodium of 110; and chloride of 74. Like secondary to lung cancer. Review of old record shows no BMP on file at the hospital. Began on normal saline at 60 mL/h at emergency department. Would de-escalate to normal saline 40 mL/h and check BMP every 4 hours. Lactic acidosis Likely secondary to hypoxemia Trend Elevated troponin Troponin presentation was 0.223. Actual image of EKG reviewed. EKG with sinus tachycardia and nonspecific abnormalities. Likely secondary to demand from hypoxemia. Trend troponin Neutrophilic leukocytosis Likely stress response. Trend. Hypocalcemia Calcium level of 6.8. Albumin level of 2.6. Corrected calcium is 7.9. 1 g of calcium gluconate ordered. Home calcium carbonate continued Trend BMP. Small cell lung cancer Continue outpatient follow-up. Hypertension Blood pressure is not within goal Metoprolol and Cardizem continued continued. As needed labetalol ordered. Trend blood pressure and adjust blood pressure medications. Hypothyroidism Patient with a history of goiter status post thyroidectomy. Reportedly parathyroid gland is in place Synthroid continued DVT prophylaxis SCD ordered. No chemical thromboprophylaxis in the setting of patient being a candidate for thoracentesis Inpatient E&M: [id number] [facility] Hosp L3
[2021-02-17 10:18] LABS: ALB/GLOB Ratio 0.7 RATIO (0.9-2.4); Globulin 3.5 g/dL (2.2-4.2); LDH 598 U/L (84-246); Protein, Total 5.8 g/dL (6.4-8.2); Thyroid Stim Hormone (TSH) 1.58 uIU/mL (0.358-3.74)
[2021-02-17 10:20] LABS: Anion Gap 9 (5-15); BUN 16 mg/dL (7-18); BUN/Creat Ratio 44.8 RATIO (10-20); Calcium,Total 6.5 mg/dL (8.5-10.1); Chloride 79 mmol/L (98-107); Creatinine, Serum 0.36 mg/dL (0.55-1.02); EST Glomerular Filtration Rate 194 mL/min (>60); Est Glom Filt Rate - Afr Amer 235 mL/min (>60); Estimated Creatinine Clearance 123.22 ml/min; Glucose 153 mg/dL (74-106); Potassium 3.9 mmol/L (3.5-5.1); Sodium Level 114 mmol/L (136-145)
--- NOTE | 2021-02-17 10:22 | CT_ITS ---
STUDY: CTA CHEST REASON FOR EXAM: Female, 66 years old. Respiratory Failure. Previously reported history of lung CA. RADIATION DOSAGE (If Supplied By Facility): CTDIvol = ( 9.55 ) mGy, DLP = ( 193.84 ) mGycm TECHNIQUE: The examination was performed with the intravenous administration of IV 75mL [id number]. Post-processing of the angiographic images was performed, with multiplanar reformation and 3D reconstruction. Individualized dose optimization techniques were used for this CT. COMPARISON: X-ray 02/17/2021, 01/07/2021. FINDINGS: Heart size is normal. No pericardial effusion. The aorta is normal in caliber. No aneurysm or dissection. There is no mediastinal mass or adenopathy. Soft tissue density in the mediastinum is suspicious for infiltrative lesion. There is no evidence of pulmonary embolus. Small left pleural effusion. Small right pneumothorax with chest tube terminating in the pleural space at the lung apex. Extensive airspace disease in the left lung suspicious for pneumonia. Multiple the left lung are consistent with metastatic disease. 8.4 cm right lower lobe mass consistent with malignancy. 5.8 x 4.6 cm right upper lobe mass consistent with malignancy or metastasis. Multiple additional masses in the right lung consistent with metastatic disease. Visualized abdomen is unremarkable. No destructive bone changes. CT/CTA Chest W/WO Contrast IMPRESSION: 1. No pulmonary embolism or arterial dissection. 2. Small right pneumothorax with chest tube in place. 3. Airspace disease in the left lung consistent with pneumonia. 4. Right upper and lower lobe masses consistent with malignancy. Multiple bilateral metastases. Electronically Signed: Tammi Barros MD at 20:26 EDT Tel , Service support ,
--- NOTE | 2021-02-17 10:55 | CASEMGMT ---
SINTIA MATA called for initial transition planning/care coordination assessment as patient is currently on airvo. SINTIA MATA introduced self and role at [facility]. Patient lying in bed, alert and oriented. willing to participate in assessment and is able to answer all questions appropriately. Care providers, pharmacy, and demographics verified. wishes for patient to discharge home, will monitor for need for HHC pending therapy. states he has no further needs or concerns at this time. CM to follow for discharge planning needs that may arise. PCP: Jono Specialists: PJ Salcedo oncologist, also follows with oncologist in [place] for clinical study. [facility] Insurance: [employer] Prescription Benefit: yes Living Will/HPOA: yes, Genaro VALDIVIAOK: Living Arrangements: Patient lives with in a 2 story home with bed and bath on first floor. Patient is independent at home. Transportation: DME/HHC: Patient has raised toilet, cane, nebulizer, and oxygen from [place]. SINTIA MATA called [facility] medical and current order is for 2lpm with ambulation. denies previous HHC or SNF. Disposition Plan: Patient to discharge home with family support and follow-up plans in place. Will monitor for HHC and increased home oxygen needs. Joy FARRIS, RN, CM
--- NOTE | 2021-02-17 11:10 | RAD_ITS ---
STUDY: X-RAY CHEST REASON FOR EXAM: Female, 66 years old. pneumothorax -- immediately post thoracentesis TECHNIQUE: Single AP portable view of the chest. COMPARISON: Portable chest, 02/16/2021 FINDINGS: There is dense airspace consolidation in both lungs. There is been interval right-sided thoracentesis with decrease in the size of the right pleural effusion. There is an approximately 30% pneumothorax on the right. Right lung mass is again noted. The heart and mediastinum are largely obscured. RAD/Chest Insp/Exp 2 View IMPRESSION: Interval thoracentesis with decrease in size of the right pleural effusion and development of a pneumothorax, as described. Electronically Signed: Rosas Holbrook MD at 11:49 EDT Tel , Service support ,
[2021-02-17 12:04] LABS: Glucose, Body Fluid 139 mg/dL (40-70); LDH,Body Fluid 354 Units/l (Not Establ.); Protein, Body Fluid 2.5 g/dL (Not Establ.)
--- NOTE | 2021-02-17 12:06 | NURSING ---
Airvo removed, placed on 100% NRB
[2021-02-17 12:14] LABS: Body Fluid Mononuclear WBC # 0.288 10^3/uL; Body Fluid Polynuclear WBC # 0.101 10^3/uL; Body Fluid Total Cells Counted 0.477 10^3/ul; White Blood Count/Body Fluid 0.389 10^3/uL
[2021-02-17] MEDS: Midazolam 2 MG/2 ML Syringe IV (12:28)
--- NOTE | 2021-02-17 12:28 | NURSING ---
1225-Dr. Mullen and Hayley at bedside preparing for Chest tube insertion. Time out complete. 1228-Versed 2mg given by Dr. Mullen 1229-50mcg Fentanyl given by 1230-Spo2 74% on 100% NRB, RR 30, HR 111, BP 110/47 1235 HR 108 R 32 BP 105/53 spO2 78 1240 HR 107 R 28 BP 92/[address] to sxt per [facility]
[2021-02-17] MEDS: fentaNYL 100 MCG/2 ML Ampul 50 MCG IV (12:29)
--- NOTE | 2021-02-17 12:45 | RAD_ITS ---
STUDY: X-RAY CHEST REASON FOR EXAM: Female, 66 years old. Chest tube placement TECHNIQUE: AP COMPARISON: Earlier today FINDINGS: A right chest tube has been placed with the tip extending to the right apex. Decreased pneumothorax with minimal air in the right minor fissure. EKG leads project over the chest. Multilobar airspace consolidation particularly involving the right mid and lower lung zones, stable. Rounded masslike consolidation of the right mid lung adjacent to the right hilum stable. Normal size heart. Normal mediastinum and ciera. Normal visualized pulmonary arteries. Normal visualized aortic arch and descending thoracic aorta. No acute bony process. There is no demonstrated abnormality of the visualized soft tissue structures of the upper abdomen. RAD/CXR for Line Placement IMPRESSION: 1. Right chest tube. Nearly resolved right pneumothorax. 2. Multilobar airspace disease. Electronically Signed: Charles Christensen MD ([place]) at 13:10 EDT , Service support ,
[2021-02-17 13:07] LABS: Lymphocytes 18 %; Mesothelial Cells 21 %; Monocytes 28 %; Neutrophil (Segs) 33 %
--- NOTE | 2021-02-17 13:07 | PCM.CONS.GEN ---
Reason for Consult Date of Consultation: 02/17/21 History of Present Illness: he patient is a 66-year-old female, with a history as outlined below, who presented to the emergency department on February 16 with complaints of shortness of breath. Patient has a history of primary lung cancer with malignant pleural effusion. She reports that she sees an oncologist through the [facility] in [place] and is currently enrolled in a clinical trial in [place]. The patient has had a recurrent pleural effusion, requiring thoracentesis, most recently as January 30. The thoracenteses in the past have provided symptom relief to the patient. During her last thoracentesis on January 30, 1.5 L of fluid was removed. Pleural fluid cytology dated January 13 was positive for non-small cell carcinoma, favor adenocarcinoma. On presentation to the emergency department, the patient was noted to be afebrile but was tachycardic and tachypneic. Laboratory evaluation revealed an elevated white blood cell count to 19,000. Sodium was low at 110 with a chloride of 74. Lactate was elevated to 2.4. Troponin was increased to 0.223, which has climbed to 1.7 this morning. BNP was elevated to 164. The patient initially was placed on a 3% saline infusion. However, that order was discontinued on arrival to the ICU and the patient was placed on normal saline at only 40 cc/h. The patient never received antimicrobials. Was called by the chalk cutter with the patient who had hemopneumothorax was tachypneic hypertensive he was requesting a chest to be placed. Past Medical History Past Medical History (Chronic Problems): Chronic Problems (Last Reviewed 02/17/21 @ 05:[address] Eduardo Jones MD) Lung cancer (Chronic) Medical History: Medical History (Last Reviewed 02/17/21 @ 13:[address] Aldo Hardy MD) Lung cancer C34.90 Allergies No Known Allergies Allergy (Verified 02/16/21 21:00) Home Medications: Ambulatory Orders Medication Instructions Recorded Calcium Carbonate [Oyster Shell 1 tablet PO DAILY 02/16/21 Calcium] Diltiazem HCl [Cartia Xt] 1 tablet PO DAILY 02/16/21 Levothyroxine [Synthroid] 88 mcg PO DAILY 02/16/21 Metoprolol Succinate 25 mg PO DAILY 02/16/21 Surgical History: - - Thyroidectomy Smoking Status: Never smoker Tobacco Use: Non-smoker - *Family History Maternal History Items: Cancer Paternal History Items: - - Denies knowledge of paternal medical history. Reportedly her father was tortured to in outside country. Patient Problems: Active and Suspected Problems (Last Reviewed 02/17/21 @ 05:[address] Eduardo Jones MD) Pleural effusion on right (Acute) Hypoxia (Acute) Hyponatremia (Acute) Leukocytosis (Acute) Elevated troponin (Acute) - Physical Exam Vitals/I&O's: Vital Signs Temp Pulse Resp BP Pulse Ox 96.8 F L 113 H 30 H 128/84 H 96 02/17/21 08:00 02/17/21 11:51 02/17/21 11:28 02/17/21 11:28 02/17/21 11:15 Oxygen Flow Rate (L/min) [3] 60 Oxygen Flow Rate (L/min) [2] 60 Oxygen Flow Rate (L/min) [1 ( 60 Initial Baseline)] Oxygen Flow Rate (L/min) 60 Oxygen Delivery Method [3] Airvo Oxygen Delivery Method [2] Airvo Oxygen Delivery Method [1 ( Airvo Initial Baseline)] Oxygen Delivery Method Airvo Weight: 113 lb 8.609 oz Body Mass Index (BMI) 20.7 Intake and Output for Last 24 Hours 02/15/21 02/16/21 02/17/21 23:59 23:59 23:59 Intake Total 1304.58 / 1304.58 Output Total 920 / 920 Balance 384.58 / 384.58 General: - - Patient was unable to answer question was in extremis struggling to breathe Lungs: - - No breath sounds on the right side. Microbiology Past 72 Hours 02/17/21 10:50 Fluid - Thoracentesis Fluid Gram Stain - Final 02/16/21 22:05 Mucosa - Nose SARS-CoV-2 Antigen (Rapid) - Final Laboratory Results 02/16/21 21:13: WBC 19.1 H, RBC 4.43, Hgb 13.5, Hct 37.2, MCV 84.0, MCH 30.5, MCHC 36.3 H, RDW Std Deviation 42.6, RDW Coeff of Gina 13.8, Plt Count 353, MPV 7.9, Immature Gran % (Auto) 0.500, Neut % (Auto) 93.3 H, Lymph % (Auto) 1.0 L, Long % (Auto) 4.7, Eos % (Auto) 0.3, Baso % (Auto) 0.2, Absolute Neuts (auto) 17.8 H, Absolute Lymphs (auto) 0.19 L, Nucleated RBC % 0 02/16/21 21:13: PT 14.5, INR 1.2, APTT 31.7 02/16/21 21:13: Sodium 110 L*, Potassium 3.5, Chloride 74 L*, Carbon Dioxide 26.0, Anion Gap 10, BUN 17, Creatinine 0.45 L, Estim Creat Clear Calc 98.17, Est GFR (MDRD) Af Amer 181, Est GFR (MDRD) Non-Af 150, BUN/Creatinine Ratio 38.0 H, Glucose 196 H, Calcium 6.8 L, Total Bilirubin 0.80, AST 37, ALT 34, Alkaline Phosphatase 132 H, Troponin I 0.223 H, Total Protein 6.1 L, Albumin 2.6 L, Globulin 3.5, Albumin/Globulin Ratio 0.7 L 02/16/21 21:13: Lactic Acid 2.4 H* 02/16/21 21:13: B-Natriuretic Peptide 164.0 H 02/17/21 00:30: Sodium 111 L*, Potassium 3.5, Chloride 76 L, Carbon Dioxide 26.0, Anion Gap 9, BUN 17, Creatinine 0.44 L, Estim Creat Clear Calc 100.82, Est GFR (MDRD) Af Amer 183, Est GFR (MDRD) Non-Af 151, BUN/Creatinine Ratio 38.3 H, Glucose 163 H, Calcium 6.9 L, Troponin I 1.520 H* 02/17/21 00:30: Lactic Acid 1.9 02/17/21 05:00: Sodium 113 L*, Potassium 3.9, Chloride 77 L, Carbon Dioxide 26.0, Anion Gap 10, BUN 16, Creatinine 0.39 L, Estim Creat Clear Calc 113.74, Est GFR (MDRD) Af Amer 211, Est GFR (MDRD) Non-Af 175, BUN/Creatinine Ratio 40.9 H, Glucose 162 H, Calcium 6.9 L, Troponin I 1.770 H* 02/17/21 05:00: WBC 18.0 H, RBC 4.18 L, Hgb 12.9, Hct 35.0 L, MCV 83.7, MCH 30.9, MCHC 36.9 H, RDW Std Deviation 42.2, RDW Coeff of Gina 13.8, Plt Count 299, MPV 8.1, Immature Gran % (Auto) 0.500, Neut % (Auto) 94.6 H, Lymph % (Auto) 1.1 L, Long % (Auto) 3.7, Eos % (Auto) 0.0, Baso % (Auto) 0.1, Absolute Neuts (auto) 17.0 H, Absolute Lymphs (auto) 0.20 L, Nucleated RBC % 0 02/17/21 07:30: Urine Osmolality 526, Ur Random Sodium 19 02/17/21 07:30: Urine Color Yellow, Urine Clarity Sl. Cloudy, Urine pH 6.0, Ur Specific [place] 1.020, Urine Protein 100 H, Urine Glucose (UA) 100 H, Urine Ketones 150 H, Urine Occult Blood 250 H, Urine Nitrite Negative, Urine Bilirubin Negative, Urine Urobilinogen Normal, Ur Leukocyte Esterase Negative, Urine RBC 25-50 SEEN, Urine WBC 0 SEEN, Ur Squamous Epith Cells 0-5 SEEN, Urine Bacteria 1+, Urine Mucus 0 SEEN 02/17/21 08:00: MRSA (PCR) Negative 02/17/21 09:15: Sodium 114 L*, Potassium 3.9, Chloride 79 L, Carbon Dioxide 26.0, Anion Gap 9, BUN 16, Creatinine 0.36 L, Estim Creat Clear Calc 123.22, Est GFR (MDRD) Af Amer 235, Est GFR (MDRD) Non-Af 194, BUN/Creatinine Ratio 44.8 H, Glucose 153 H, Calcium 6.5 L* 02/17/21 09:15: Troponin I 1.310 H* 02/17/21 09:15: Lactate Dehydrogenase 598 H, Total Protein 5.8 L, Globulin 3.5, Albumin/Globulin Ratio 0.7 L, TSH 1.58 02/17/21 09:15: Serum Osmolality 249 L 02/17/21 10:50: Fluid Glucose 139 H, Fluid Total Protein 2.5, Fluid LDH 354 02/17/21 10:50: Fluid Source Pending, Fluid Color Pending, Fluid Appearance Pending, Fluid WBC 0.389, Fluid RBC Pending, Fluid Tot Cell Count 0.477 H, Fld Polynuclear WBCs # 0.101, Fld Polynuclear WBCs % 26.0, Fluid Mononuclear WBCs 0.288, Fld Mononuclear WBCs % 74.0, Fl Pathologist Comment Pending, Fluid Comment 2 Pending Current Medications Acetaminophen (Acetaminophen 325 Mg Tablet) 650 mg PO Q6H PRN PRN PRN Reason: Pain Score 1-10/Temp > 100.7 F Albuterol Sulfate (Albuterol 2.5 Mg/3 Ml Vial.Neb.) 2.5 mg INHALATION Q2H PRN PRN PRN Reason: SOB/Wheezing Calcium Carbonate (Calcium (Elemental) 500 Mg Tablet) 500 mg PO DAILYCM [facility] Last Admin: 02/17/21 07:52 Dose: 500 mg Documented by: Diltiazem HCl (Diltiazem Cd 180 Mg Capsule) 180 mg PO DAILY [facility] Last Admin: 02/17/21 07:52 Dose: 180 mg Documented by: Fentanyl Citrate (Fentanyl 100 Mcg/2 Ml Ampul) 50 mcg IV X1 ONE Stop: 02/17/21 12:30 Sodium Chloride () 1,000 mls @ 150 mls/hr IV .Q6H40M [facility] Last Infusion: 02/17/21 10:01 Dose: 150 mls/hr Documented by: Sodium Chloride () 250 mls @ 15 mls/hr IV .[id number] PRN PRN Reason: Saline Flush Last Infusion: 02/17/21 11:48 Dose: 0 mls/hr Documented by: Piperacillin Sod/Tazobactam (Sod 3.375 gm/ Sodium Chloride) 50 mls @ 12.5 mls/hr IV Q8 [facility] Last Admin: 02/17/21 13:04 Dose: 12.5 mls/hr Documented by: Vancomycin IV Pharmacy to Dose (1 each/ Sodium Chloride) 500 mls @ 250 mls/hr IV PRN PRN; Protocol PRN Reason: Rx to Dose Vancomycin HCl (Vancomycin) 1,000 mg in 200 mls @ 200 mls/hr IV Q12H [facility] Labetalol HCl (Labetalol (Prefilled) 20 Mg/4 Ml) 10 mg IV Q4H PRN PRN PRN Reason: SBP more than 160 Last Admin: 02/17/21 01:59 Dose: 10 mg Documented by: Levothyroxine Sodium (Levothyroxine 88 Mcg Tablet) 88 mcg PO DAILY@0600 [facility] Last Admin: 02/17/21 05:08 Dose: 88 mcg Documented by: Metoprolol Succinate (Metoprolol(Xl)Succ 25 Mg Tablet) 25 mg PO DAILY [facility] Last Admin: 02/17/21 07:52 Dose: 25 mg Documented by: Midazolam HCl (Midazolam 2 Mg/2 Ml Syringe) 2 mg IV X1 ONE Stop: 02/17/21 12:29 Ondansetron HCl (Ondansetron 4 Mg/2 Ml Vial) 4 mg IV Q8H PRN PRN PRN Reason: NAUSEA/VOMITING Senna/Docusate Sodium (Senna/Docusate Sodium 1 Tablet) 2 tablet PO BID [facility] Last Admin: 02/17/21 07:53 Dose: Not Given Documented by: Sodium Chloride (0.9% Saline Lock 10 Ml Syringe) 10 - 40 ml IV UD PRN PRN Reason: SALINE FLUSH Last Admin: 02/17/21 13:04 Dose: 10 ml Documented by: Assessment/Plan All Active Problems (Last Reviewed 02/17/21 @ 05:[address] Eduardo Jones MD) Pleural effusion on right (Acute) Hypoxia (Acute) Hyponatremia (Acute) Leukocytosis (Acute) Elevated troponin (Acute) Assessment: Hemopneumothorax Plan: When to place an emergent chest tube on the right side. I discussed risk of bleeding with the patient but I am not quite sure she really understood what I was saying and it was very apparent that I had no time to speak to any of the relatives to get permission. I declared this an emergency.
[2021-02-17 13:08] LABS: Body Fluid QC Type(s) BF1Q,BF2Q; Red Cell Count/Body Fluid 97 /mm3
[2021-02-17 13:09] LABS: Auto B Fluid Analyzer BKGD Ct COUNTS W/IN LIMITS (W/IN LIMITS)
--- NOTE | 2021-02-17 13:09 | OP.PCM_ITS ---
Report of Operation Date of Procedure: 02/17/21 Pre-Operative Diagnosis: Right-sided hemopneumothorax Post-Operative Diagnosis: Same Surgery/Procedure Performed:: Placement of a right-sided 20 [place] chest tube Type of Anesthesia:: Local Estimated Blood Loss (mL): < 25 cc Description of Procedure: Patient was lying in the ICU in bed 3. I sterilely prepped the right side of her chest I draped this area. Local was injected. A small incision was made. I injected local above the rib making sure I got into the chest cavity without difficulty I took a Eryn clamp and got into the chest cavity I then placed a 20 [place] chest tube over this and directed cephalad direction. I hooked the chest tube to the canister fairly large air leak was identified. Approximately 225 to 240 cc of reddish tinged fluid came out. I sutured the tube to the skin with an 0 Nurolon. Adaptic was placed around the tube sterile dressings were placed around the tube and she tolerated this well. Postoperative chest x-ray was obtained showing a significant amount of the fluid to go away however her lungs do not look good. And only time will tell if this is going to really be able to take care of her problems.
[2021-02-17 13:10] LABS: Appearance/Body Fluid SL CLDY; Color/Body Fluid YELLOW; Source- Body Fluid THORACENTESIS
[2021-02-17] MEDS: 0.9% Normal Saline 1,000 ML 150 ML IV (13:12)
[2021-02-17 13:39] LABS: Anion Gap 6 (5-15); BUN 18 mg/dL (7-18); Calcium,Total 7.1 mg/dL (8.5-10.1); Chloride 82 mmol/L (98-107); Creatinine, Serum 0.39 mg/dL (0.55-1.02); EST Glomerular Filtration Rate 175 mL/min (>60); Est Glom Filt Rate - Afr Amer 211 mL/min (>60); Estimated Creatinine Clearance 113.74 ml/min; Glucose 142 mg/dL (74-106); Potassium 3.4 mmol/L (3.5-5.1); Sodium Level 116 mmol/L (136-145)
--- NOTE | 2021-02-17 13:47 | PCM.CONS.R ---
Problem List (1) Hyponatremia Status: Acute Consultation - Renal 02/17/21 PCP/ Referring MD: Requesting physician: [] Primary care physician: Dr. Terrance De La Cruz MD Reason for Consultation:: hyponatremia - History of Present Illness History of Present Illness: The patient is a 66 year old F who was admitted to the hospital with shortness of breath. nephrology consultation for hyponatremia. I do not have any prior history on her. She has known history of adenocarcinoma with possible malignant effusions. She is currently uncontrolled in a clinical trial in [place]. I did call her test clerk. Family she was treated with EGFR tyrosine kinase inhibitors, bevacizumab and was recently started on a clinical trial with another EGFR jose specific for a mutation. Her first treatment was 02/05/21. Sodium at that time was 127. She came in with a sodium of 110. Other events include large pleural effusion, elevated troponins, elevated lactate levels. She is currently on normal saline. Denies any urinary complaints. - Allergies Allergies: Allergies No Known Allergies Allergy (Verified 02/16/21 21:00) - Current Medications Current Medications: Current Medications Acetaminophen (Acetaminophen 325 Mg Tablet) 650 mg PO Q6H PRN PRN PRN Reason: Pain Score 1-10/Temp > 100.7 F Albuterol Sulfate (Albuterol 2.5 Mg/3 Ml Vial.Neb.) 2.5 mg INHALATION Q2H PRN PRN PRN Reason: SOB/Wheezing Calcium Carbonate (Calcium (Elemental) 500 Mg Tablet) 500 mg PO DAILYCM [facility] Last Admin: 02/17/21 07:52 Dose: 500 mg Documented by: Diltiazem HCl (Diltiazem Cd 180 Mg Capsule) 180 mg PO DAILY [facility] Last Admin: 02/17/21 07:52 Dose: 180 mg Documented by: Sodium Chloride () 1,000 mls @ 150 mls/hr IV .Q6H40M [facility] Last Admin: 02/17/21 13:12 Dose: 150 mls/hr Documented by: Sodium Chloride () 250 mls @ 15 mls/hr IV .[id number] PRN PRN Reason: Saline Flush Last Infusion: 02/17/21 11:48 Dose: 0 mls/hr Documented by: Piperacillin Sod/Tazobactam (Sod 3.375 gm/ Sodium Chloride) 50 mls @ 12.5 mls/hr IV Q8 [facility] Last Admin: 02/17/21 13:04 Dose: 12.5 mls/hr Documented by: Vancomycin IV Pharmacy to Dose (1 each/ Sodium Chloride) 500 mls @ 250 mls/hr IV PRN PRN; Protocol PRN Reason: Rx to Dose Vancomycin HCl (Vancomycin) 1,000 mg in 200 mls @ 200 mls/hr IV Q12H [facility] Labetalol HCl (Labetalol (Prefilled) 20 Mg/4 Ml) 10 mg IV Q4H PRN PRN PRN Reason: SBP more than 160 Last Admin: 02/17/21 01:59 Dose: 10 mg Documented by: Levothyroxine Sodium (Levothyroxine 88 Mcg Tablet) 88 mcg PO DAILY@0600 [facility] Last Admin: 02/17/21 05:08 Dose: 88 mcg Documented by: Metoprolol Succinate (Metoprolol(Xl)Succ 25 Mg Tablet) 25 mg PO DAILY [facility] Last Admin: 02/17/21 07:52 Dose: 25 mg Documented by: Ondansetron HCl (Ondansetron 4 Mg/2 Ml Vial) 4 mg IV Q8H PRN PRN PRN Reason: NAUSEA/VOMITING Senna/Docusate Sodium (Senna/Docusate Sodium 1 Tablet) 2 tablet PO BID [facility] Last Admin: 02/17/21 07:53 Dose: Not Given Documented by: Sodium Chloride (0.9% Saline Lock 10 Ml Syringe) 10 - 40 ml IV UD PRN PRN Reason: SALINE FLUSH Last Admin: 02/17/21 13:04 Dose: 10 ml Documented by: - Past Medical History Past Medical History (Chronic Problems): Chronic Problems (Last Reviewed 02/17/21 @ 13:[address] Aldo Hardy MD) Lung cancer (Chronic) - Past Surgical History Surgical History: - - Thyroidectomy - Social History Smoking Status: Never smoker - Family History Maternal History Items: Cancer Paternal History Items: - - Denies knowledge of paternal medical history. Reportedly her father was tortured to in outside country. Review of Systems Respiratory: Reports: Shortness of Breath Patient Problems: Active and Suspected Problems (Last Reviewed 02/17/21 @ 13:[address] Aldo Hardy MD) Pleural effusion on right (Acute) Hypoxia (Acute) Hyponatremia (Acute) Leukocytosis (Acute) Elevated troponin (Acute) - Physical Exam Vitals/I&O's: Vital Signs Temp Pulse Resp BP Pulse Ox 98.4 F 103 H 23 H 120/68 93 02/17/21 12:00 02/17/21 13:30 02/17/21 13:30 02/17/21 13:30 02/17/21 13:30 Oxygen Flow Rate (L/min) [3] 60 Oxygen Flow Rate (L/min) [2] 60 Oxygen Flow Rate (L/min) [1 ( 60 Initial Baseline)] Oxygen Flow Rate (L/min) 60 Oxygen Delivery Method [3] Airvo Oxygen Delivery Method [2] Airvo Oxygen Delivery Method [1 ( Airvo Initial Baseline)] Oxygen Delivery Method Airvo Weight: 51.5 kg Body Mass Index (BMI) 20.7 Intake and Output for Last 24 Hours 02/15/21 02/16/21 02/17/21 23:59 23:59 23:59 Intake Total 1777.75 / 1777.75 Output Total 920 / 920 Balance 857.75 / 857.75 General: Alert, Oriented x3 HEENT: EOMI Oral: Moist Mucosa Neck: No JVD Lungs: Tachypneic, Using Accessory Muscles Cardiovascular: Regular rate Abdomen: Bowel Sounds Present Extremities: No clubbing, No edema Skin: No rashes Microbiology Past 72 Hours 02/17/21 10:50 Fluid - Thoracentesis Fluid Gram Stain - Final 02/16/21 22:05 Mucosa - Nose SARS-CoV-2 Antigen (Rapid) - Final Laboratory Results 02/16/21 21:13: WBC 19.1 H, RBC 4.43, Hgb 13.5, Hct 37.2, MCV 84.0, MCH 30.5, MCHC 36.3 H, RDW Std Deviation 42.6, RDW Coeff of Gina 13.8, Plt Count 353, MPV 7.9, Immature Gran % (Auto) 0.500, Neut % (Auto) 93.3 H, Lymph % (Auto) 1.0 L, [place] % (Auto) 4.7, Eos % (Auto) 0.3, Baso % (Auto) 0.2, Absolute Neuts (auto) 17.8 H, Absolute Lymphs (auto) 0.19 L, Nucleated RBC % 0 02/16/21 21:13: PT 14.5, INR 1.2, APTT 31.7 02/16/21 21:13: Sodium 110 L*, Potassium 3.5, Chloride 74 L*, Carbon Dioxide 26.0, Anion Gap 10, BUN 17, Creatinine 0.45 L, Estim Creat Clear Calc 98.17, Est GFR (MDRD) Af Amer 181, Est GFR (MDRD) Non-Af 150, BUN/Creatinine Ratio 38.0 H, Glucose 196 H, Calcium 6.8 L, Total Bilirubin 0.80, AST 37, ALT 34, Alkaline Phosphatase 132 H, Troponin I 0.223 H, Total Protein 6.1 L, Albumin 2.6 L, Globulin 3.5, Albumin/Globulin Ratio 0.7 L 02/16/21 21:13: Lactic Acid 2.4 H* 02/16/21 21:13: B-Natriuretic Peptide 164.0 H 02/17/21 00:30: Sodium 111 L*, Potassium 3.5, Chloride 76 L, Carbon Dioxide 26.0, Anion Gap 9, BUN 17, Creatinine 0.44 L, Estim Creat Clear Calc 100.82, Est GFR (MDRD) Af Amer 183, Est GFR (MDRD) Non-Af 151, BUN/Creatinine Ratio 38.3 H, Glucose 163 H, Calcium 6.9 L, Troponin I 1.520 H* 02/17/21 00:30: Lactic Acid 1.9 02/17/21 05:00: Sodium 113 L*, Potassium 3.9, Chloride 77 L, Carbon Dioxide 26.0, Anion Gap 10, BUN 16, Creatinine 0.39 L, Estim Creat Clear Calc 113.74, Est GFR (MDRD) Af Amer 211, Est GFR (MDRD) Non-Af 175, BUN/Creatinine Ratio 40.9 H, Glucose 162 H, Calcium 6.9 L, Troponin I 1.770 H* 02/17/21 05:00: WBC 18.0 H, RBC 4.18 L, Hgb 12.9, Hct 35.0 L, MCV 83.7, MCH 30.9, MCHC 36.9 H, RDW Std Deviation 42.2, RDW Coeff of Gina 13.8, Plt Count 299, MPV 8.1, Immature Gran % (Auto) 0.500, Neut % (Auto) 94.6 H, Lymph % (Auto) 1.1 L, [place] % (Auto) 3.7, Eos % (Auto) 0.0, Baso % (Auto) 0.1, Absolute Neuts (auto) 17.0 H, Absolute Lymphs (auto) 0.20 L, Nucleated RBC % 0 02/17/21 07:30: Urine Osmolality 526, Ur Random Sodium 19 02/17/21 07:30: Urine Color Yellow, Urine Clarity Sl. Cloudy, Urine pH 6.0, Ur Specific [place] 1.020, Urine Protein 100 H, Urine Glucose (UA) 100 H, Urine Ketones 150 H, Urine Occult Blood 250 H, Urine Nitrite Negative, Urine Bilirubin Negative, Urine Urobilinogen Normal, Ur Leukocyte Esterase Negative, Urine RBC 25-50 SEEN, Urine WBC 0 SEEN, Ur Squamous Epith Cells 0-5 SEEN, Urine Bacteria 1+, Urine Mucus 0 SEEN 02/17/21 08:00: MRSA (PCR) Negative 02/17/21 09:15: Sodium 114 L*, Potassium 3.9, Chloride 79 L, Carbon Dioxide 26.0, Anion Gap 9, BUN 16, Creatinine 0.36 L, Estim Creat Clear Calc 123.22, Est GFR (MDRD) Af Amer 235, Est GFR (MDRD) Non-Af 194, BUN/Creatinine Ratio 44.8 H, Glucose 153 H, Calcium 6.5 L* 02/17/21 09:15: Troponin I 1.310 H* 02/17/21 09:15: Lactate Dehydrogenase 598 H, Total Protein 5.8 L, Globulin 3.5, Albumin/Globulin Ratio 0.7 L, TSH 1.58 02/17/21 09:15: Serum Osmolality 249 L 02/17/21 10:50: Fluid Glucose 139 H, Fluid Total Protein 2.5, Fluid LDH 354 02/17/21 10:50: Fluid Source THORACENTESIS, Fluid Color YELLOW, Fluid Appearance SL CLDY, Fluid WBC 0.389, Fluid RBC 97, Fluid Tot Cell Count 0.477 H, Fld Polynuclear WBCs # 0.101, Fld Polynuclear WBCs % 26.0, Fluid Mononuclear WBCs 0.288, Fld Mononuclear WBCs % 74.0, Fluid Neutrophils 33, Fluid Lymphocytes 18, Fluid Monocytes 28, Fld Mesothelial Cells 21, Fl Pathologist Comment May follow, Fluid Comment 2 SEE COMMENT 02/17/21 13:00: Sodium 116 L*, Potassium 3.4 L, Chloride 82 L, Carbon Dioxide 28.0, Anion Gap 6, BUN 18, Creatinine 0.39 L, Estim Creat Clear Calc 113.74, Est GFR (MDRD) Af Amer 211, Est GFR (MDRD) Non-Af 175, BUN/Creatinine Ratio 46.0 H, Glucose 142 H, Calcium 7.1 L 02/17/21 13:00: Troponin I 1.170 H* Current Medications Acetaminophen (Acetaminophen 325 Mg Tablet) 650 mg PO Q6H PRN PRN PRN Reason: Pain Score 1-10/Temp > 100.7 F Albuterol Sulfate (Albuterol 2.5 Mg/3 Ml Vial.Neb.) 2.5 mg INHALATION Q2H PRN PRN PRN Reason: SOB/Wheezing Calcium Carbonate (Calcium (Elemental) 500 Mg Tablet) 500 mg PO DAILYCM [facility] Last Admin: 02/17/21 07:52 Dose: 500 mg Documented by: Diltiazem HCl (Diltiazem Cd 180 Mg Capsule) 180 mg PO DAILY [facility] Last Admin: 02/17/21 07:52 Dose: 180 mg Documented by: Sodium Chloride () 1,000 mls @ 150 mls/hr IV .Q6H40M [facility] Last Admin: 02/17/21 13:12 Dose: 150 mls/hr Documented by: Sodium Chloride () 250 mls @ 15 mls/hr IV .[id number] PRN PRN Reason: Saline Flush Last Infusion: 02/17/21 11:48 Dose: 0 mls/hr Documented by: Piperacillin Sod/Tazobactam (Sod 3.375 gm/ Sodium Chloride) 50 mls @ 12.5 mls/hr IV Q8 [facility] Last Admin: 02/17/21 13:04 Dose: 12.5 mls/hr Documented by: Vancomycin IV Pharmacy to Dose (1 each/ Sodium Chloride) 500 mls @ 250 mls/hr IV PRN PRN; Protocol PRN Reason: Rx to Dose Vancomycin HCl (Vancomycin) 1,000 mg in 200 mls @ 200 mls/hr IV Q12H [facility] Labetalol HCl (Labetalol (Prefilled) 20 Mg/4 Ml) 10 mg IV Q4H PRN PRN PRN Reason: SBP more than 160 Last Admin: 02/17/21 01:59 Dose: 10 mg Documented by: Levothyroxine Sodium (Levothyroxine 88 Mcg Tablet) 88 mcg PO DAILY@0600 [facility] Last Admin: 02/17/21 05:08 Dose: 88 mcg Documented by: Metoprolol Succinate (Metoprolol(Xl)Succ 25 Mg Tablet) 25 mg PO DAILY [facility] Last Admin: 02/17/21 07:52 Dose: 25 mg Documented by: Ondansetron HCl (Ondansetron 4 Mg/2 Ml Vial) 4 mg IV Q8H PRN PRN PRN Reason: NAUSEA/VOMITING Senna/Docusate Sodium (Senna/Docusate Sodium 1 Tablet) 2 tablet PO BID [facility] Last Admin: 02/17/21 07:53 Dose: Not Given Documented by: Sodium Chloride (0.9% Saline Lock 10 Ml Syringe) 10 - 40 ml IV UD PRN PRN Reason: SALINE FLUSH Last Admin: 02/17/21 13:04 Dose: 10 ml Documented by: Assessment/Plan All Active Problems (Last Reviewed 02/17/21 @ 13:[address] Aldo Hardy MD) Pleural effusion on right (Acute) Hypoxia (Acute) Hyponatremia (Acute) Leukocytosis (Acute) Elevated troponin (Acute) Hyponatremia. Serum osmolality is low hence true hyponatremia. Urine sodium is low at 19, urine osmolality is high. Other than pleural effusions she does not have any signs of volume overload. In fact for oral mucosa is dry. Effusions are likely malignant. ? Hypovolemic hyponatremia. She is slowly improving with IV fluids. Continue for today. Pleural effusions. Likely malignant. Discussed with hematology. They are requesting Pleurx catheter if possible. Discussed with hospitalist Discussed with driver courier
[2021-02-17] MEDS: LORazepam 2 MG/ML Syringe 0.5 MG IV (14:20)
[2021-02-17] MEDS: Potassium Chloride 10mEq/100mL 10 MEQ/100 ML IV.SOLN. 100 MEQ IV BOLUS ×4 (14:36→18:00)
[2021-02-17 17:49] LABS: Anion Gap 11 (5-15); BUN 19 mg/dL (7-18); BUN/Creat Ratio 40.6 RATIO (10-20); Calcium,Total 7.6 mg/dL (8.5-10.1); Chloride 81 mmol/L (98-107); Creatinine, Serum 0.47 mg/dL (0.55-1.02); EST Glomerular Filtration Rate 142 mL/min (>60); Est Glom Filt Rate - Afr Amer 172 mL/min (>60); Estimated Creatinine Clearance 94.38 ml/min; Glucose 132 mg/dL (74-106); Potassium 4.4 mmol/L (3.5-5.1); Sodium Level 118 mmol/L (136-145)
--- NOTE | 2021-02-17 18:09 | CON.PCM_ITS ---
Reason for Consult Date of Consultation: 02/17/21 Reason for Consultation: Shortness of breath History of Present Illness: The patient is a 66 year old F who presented to the emergency room with shortness of breath. She has a history of primary lung cancer with what appears to be a malignant pleural effusion. She has been seeing an oncologist at [facility] and has had recurrent pleural effusions requiring thoracentesis. 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 In the emergency room she was noted to be tachycardic tachypneic and was noted to have a mildly elevated troponin. Her BNP was mildly elevated. Her electrolytes were noted to be low she was admitted to the intensive care unit cardiology was called for further evaluation and management. This morning she denied any chest pain per se. [] Past Medical History Allergies/Adverse Reactions: Allergies No Known Allergies Allergy (Verified 02/16/21 21:00) Home Medications: Ambulatory Orders Medication Instructions Recorded Calcium Carbonate [Oyster Shell 1 tablet PO DAILY 02/16/21 Calcium] Diltiazem HCl [Cartia Xt] 1 tablet PO DAILY 02/16/21 Levothyroxine [Synthroid] 88 mcg PO DAILY 02/16/21 Metoprolol Succinate 25 mg PO DAILY 02/16/21 Past Medical History (Chronic Problems): Chronic Problems (Last Reviewed 02/17/21 @ 13:[address] Aldo Hadry MD) Lung cancer (Chronic) Surgical History: - - Thyroidectomy - *Family History Maternal History Items: Cancer Paternal History Items: - - Denies knowledge of paternal medical history. Reportedly her father was tortured to in outside country. Smoking Status: Never smoker Tobacco Use: Non-smoker Alcohol: None Drugs: None Review of Systems - Review of Systems General: Reports: Fatigue, Malaise. Denies: Fever, Night Sweats HEENT: Denies: Vision Change Cardiovascular: Reports: Shortness of Breath, Shortness of Breath at Rest. Denies: Chest Discomfort, Orthopnea, PND, Peripheral Edema, Palpitations, Lightheadedness, Dizziness, Near Syncope, Syncope Respiratory: Denies: Cough, Sputum Production, Hemoptysis Gastrointestinal: Denies: Hematemesis, Hematochezia, Melena Genitourinary: Denies: Dysuria, Hematuria Muscoloskeletal: Denies: Myalgias Skin: Denies: Rash Neurological: Denies: Dizziness Psychiatric: Denies: Anxiety Endocrine: Denies: Unexplained Weight Loss Subjectve: Pleasant lady rather short of breath and in distress Objective: Vital Signs Temp Pulse Resp BP Pulse Ox 98.4 F 110 H 26 H 121/52 H 91 02/17/21 12:00 02/17/21 15:58 02/17/21 15:30 02/17/21 15:00 02/17/21 15:30 Oxygen Flow Rate (L/min) [3] 60 Oxygen Flow Rate (L/min) [2] 60 Oxygen Flow Rate (L/min) [1 ( 60 Initial Baseline)] Oxygen Flow Rate (L/min) 60 Oxygen Delivery Method [3] Airvo Oxygen Delivery Method [2] Airvo Oxygen Delivery Method [1 ( Airvo Initial Baseline)] Oxygen Delivery Method Bi-pap Weight: 113 lb 8.609 oz Body Mass Index (BMI) 20.7 Intake and Output for Last 24 Hours 02/15/21 02/16/21 02/17/21 23:59 23:59 23:59 Intake Total 2336.27 / 2336.27 Output Total 1935 / 1935 Balance 401.27 / 401.27 General: Awake, Alert, Oriented x 3 HEENT: PERRL, EOMI, Sclera Non Icteric Neck: Supple, Good ROM, No Lymph Node Enlargement Lungs: Diminished Left Base, Dullness to Percussion-Left Cardiovascular: Regular Rhythm, Normal S1, Normal S2, No Murmurs, No Rubs, No Gallops Vascular: No Carotid Bruits, Normal Femoral Pulses, Normal Radial Pulses, Normal Dorsalis Pedal Pulse, Normal Posterior Tibial Pulses Abdomen: Bowel Sounds Present, Soft, Non Tender, No HSM, No Organomegaly Extremities: No Cyanosis, No Clubbing, No edema Musculoskeletal: No Erythema Skin: No Rashes Neurological: No Focal Motor or Sensory Deficit Psych/Mental Status: Appropriate 02/16/21 21:13: WBC 19.1 H, RBC 4.43, Hgb 13.5, Hct 37.2, MCV 84.0, MCH 30.5, MCHC 36.3 H, Plt Count 353, MPV 7.9, Immature Gran % (Auto) 0.500, Neut % (Auto) 93.3 H, Lymph % (Auto) 1.0 L, [place] % (Auto) 4.7, Eos % (Auto) 0.3, Baso % (Auto) 0.2, Absolute Neuts (auto) 17.8 H, Nucleated RBC % 0 02/16/21 21:13: PT 14.5, INR 1.2, APTT 31.7 02/16/21 21:13: Sodium 110 L*, Potassium 3.5, Chloride 74 L*, Carbon Dioxide 26.0, Anion Gap 10, BUN 17, Creatinine 0.45 L, Est GFR (MDRD) Af Amer 181, Est GFR (MDRD) Non-Af 150, BUN/Creatinine Ratio 38.0 H, Glucose 196 H, Calcium 6.8 L , Total Bilirubin 0.80, Troponin I 0.223 H 02/16/21 21:13: Lactic Acid 2.4 H* 02/16/21 21:13: B-Natriuretic Peptide 164.0 H 02/17/21 00:30: Sodium 111 L*, Potassium 3.5, Chloride 76 L, Carbon Dioxide 26.0, Anion Gap 9, BUN 17, Creatinine 0.44 L, Est GFR (MDRD) Af Amer 183, Est GFR (MDRD) Non-Af 151, BUN/Creatinine Ratio 38.3 H, Glucose 163 H, Calcium 6.9 L , Troponin I 1.520 H* 02/17/21 00:30: Lactic Acid 1.9 02/17/21 05:00: Sodium 113 L*, Potassium 3.9, Chloride 77 L, Carbon Dioxide 26.0, Anion Gap 10, BUN 16, Creatinine 0.39 L, Est GFR (MDRD) Af Amer 211, Est GFR (MDRD) Non-Af 175, BUN/Creatinine Ratio 40.9 H, Glucose 162 H, Calcium 6.9 L , Troponin I 1.770 H* 02/17/21 05:00: WBC 18.0 H, RBC 4.18 L, Hgb 12.9, Hct 35.0 L, MCV 83.7, MCH 30.9, MCHC 36.9 H, Plt Count 299, MPV 8.1, Immature Gran % (Auto) 0.500, Neut % (Auto) 94.6 H, Lymph % (Auto) 1.1 L, [place] % (Auto) 3.7, Eos % (Auto) 0.0, Baso % (Auto) 0.1, Absolute Neuts (auto) 17.0 H, Nucleated RBC % 0 02/17/21 07:30: Urine Color Yellow, Urine Clarity Sl. Cloudy, Urine pH 6.0, Ur Specific [place] 1.020, Urine Protein 100 H, Urine Glucose (UA) 100 H, Urine Ketones 150 H, Urine Occult Blood 250 H, Urine Nitrite Negative, Urine Bilirubin Negative, Urine Urobilinogen Normal, Ur Leukocyte Esterase Negative, Urine RBC 25-50 SEEN, Urine WBC 0 SEEN 02/17/21 09:15: Sodium 114 L*, Potassium 3.9, Chloride 79 L, Carbon Dioxide 26.0, Anion Gap 9, BUN 16, Creatinine 0.36 L, Est GFR (MDRD) Af Amer 235, Est GFR (MDRD) Non-Af 194, BUN/Creatinine Ratio 44.8 H, Glucose 153 H, Calcium 6.5 L* 02/17/21 09:15: Troponin I 1.310 H* 02/17/21 09:15: Serum Osmolality 249 L 02/17/21 13:00: Sodium 116 L*, Potassium 3.4 L, Chloride 82 L, Carbon Dioxide 28.0, Anion Gap 6, BUN 18, Creatinine 0.39 L, Est GFR (MDRD) Af Amer 211, Est GFR (MDRD) Non-Af 175, BUN/Creatinine Ratio 46.0 H, Glucose 142 H, Calcium 7.1 L 02/17/21 13:00: Troponin I 1.170 H* 02/17/21 17:15: Sodium 118 L*, Potassium 4.4, Chloride 81 L, Carbon Dioxide 26.0, Anion Gap 11, BUN 19 H, Creatinine 0.47 L, Est GFR (MDRD) Af Amer 172, Est GFR (MDRD) Non-Af 142, BUN/Creatinine Ratio 40.6 H, Glucose 132 H, Calcium 7.6 L , Troponin I 1.200 H* Rhythm: EKG: Sinus tachycardia ECHO: Preserved left ventricular systolic function, dilated right ventricle with apical sparing. Moderate pulmonary hypertension present Stress Test: Cardiac Cath: PCI: CT Surgery: Holter monitor: EPS: PPM: CXR: Chest CT Scan: Assessment/Plan 1. Shortness of breath * Patient presents with shortness of breath and is noted to have a left pleural effusion from her malignancy. Has symptoms with regard to her tachycardia, and her echocardiographic findings are consistent with a possible pulmonary embolism. * I would recommend a CT scan to confirm the above. * Risk benefit of anticoagulation will need to be weighed vis-?-vis her current situation. * Have mildly elevated troponin and natruretic peptide are consistent with the above. * At this particular time I would not recommend any cardiology treatment per se. * * Thank you for allowing me to participate in the care of your patient. Please don't hesitate to call if any issues arise.
[2021-02-17] MEDS: Vancomycin IV 1,000 MG/200 ML BAG 200 MG IV (20:15)
--- NOTE | 2021-02-17 21:27 | PN_ITS ---
Patient Problems: Active and Suspected Problems (Last Reviewed 02/17/21 @ 13:[address] Aldo Hardy MD) Pleural effusion on right (Acute) Hypoxia (Acute) Hyponatremia (Acute) Leukocytosis (Acute) Elevated troponin (Acute) Subjective: Please note: this is the updated and amended note for 02/17/2021. Patient seen and examined. SHe was admitted with a complaint of shortness of breath, with associated cough productive of clear sputum, as well as weakness and fatigue and anorexia. She does have a history of lung cancer with recurrent pleural effusion for which she needs repeated thoracentesis. Of note, she was also tachycardic and tachypneic as well as had elevated lactic acid on admission as well as leukocytosis. She was also profoundly hyponatremic with sodium of 110 on admission. Troponins were also elevated at 0.223 peaked at 1.7. Patient seen this morning. She remains short of breath. She was quite restless at time of been reviewed. She remained tachycardic and tachypneic. She is due for thoracentesis this morning. SIRS criteria remains 3 out of 4 with tachypnea, tachycardia and elevated white cell count. Vitals/I&O's: Vital Signs Temp Pulse Resp BP Pulse Ox 100 F H 99 30 H 116/91 H 93 02/17/21 20:00 02/17/21 20:00 02/17/21 20:00 02/17/21 20:00 02/17/21 20:00 Oxygen Flow Rate (L/min) [3] 60 Oxygen Flow Rate (L/min) [2] 60 Oxygen Flow Rate (L/min) [1 ( 60 Initial Baseline)] Oxygen Flow Rate (L/min) 60 Oxygen Delivery Method [3] Airvo Oxygen Delivery Method [2] Airvo Oxygen Delivery Method [1 ( Airvo Initial Baseline)] Oxygen Delivery Method Bi-pap Weight: 113 lb 8.609 oz Body Mass Index (BMI) 20.7 Intake and Output for Last 24 Hours 02/15/21 02/16/21 02/17/21 23:59 23:59 23:59 Intake Total 2662.04 / 2662.04 Output Total 2059 / 2059 Balance 602.04 / 602.04 General: Alert, Cooperative, - - restless HEENT: Atraumatic, PERRLA, EOMI, Normocephalic Oral: Dry Mucosa Neck: Supple, No JVD, Negative Carotid Bruits Lungs: - - markedly diminished breath sounds in right mid and lower lung mcgowan. Few crackles in left lower lung mcgowan. on 60L of oxygen via AirVo Cardiovascular: Normal S1, Normal S2, No murmurs, Tachycardic Abdomen: Bowel Sounds Present, Soft, Non Tender, Non-Distended, No Hepato- splenomegaly Extremities: No clubbing, No cyanosis, No edema, Capillary Refill Less than 3 Seconds Skin: No rashes, No breakdown Musculoskeletal: No Tenderness to Palpation of Joints or Extremities Lymphatic: No Cervical, Supraclavicular, or Inguinal Adenopathy Neurological: Cranial nerves II-XII grossly intact, Neuro grossly intact, Motor Exam 5/5 strength throughout Psych/Mental Status: Normal Affect, Appropriate, Alert and oriented to time, place, person, mood and affect Microbiology Past 72 Hours 02/17/21 10:50 Fluid - Thoracentesis Fluid Gram Stain - Final 02/16/21 22:05 Mucosa - Nose SARS-CoV-2 Antigen (Rapid) - Final Laboratory Results 02/16/21 21:13: WBC 19.1 H, RBC 4.43, Hgb 13.5, Hct 37.2, MCV 84.0, MCH 30.5, MCHC 36.3 H, RDW Std Deviation 42.6, RDW Coeff of Gina 13.8, Plt Count 353, MPV 7.9, Immature Gran % (Auto) 0.500, Neut % (Auto) 93.3 H, Lymph % (Auto) 1.0 L, [place] % (Auto) 4.7, Eos % (Auto) 0.3, Baso % (Auto) 0.2, Absolute Neuts (auto) 17.8 H, Absolute Lymphs (auto) 0.19 L, Nucleated RBC % 0 02/16/21 21:13: PT 14.5, INR 1.2, APTT 31.7 02/16/21 21:13: Sodium 110 L*, Potassium 3.5, Chloride 74 L*, Carbon Dioxide 26.0, Anion Gap 10, BUN 17, Creatinine 0.45 L, Estim Creat Clear Calc 98.17, Est GFR (MDRD) Af Amer 181, Est GFR (MDRD) Non-Af 150, BUN/Creatinine Ratio 38.0 H, Glucose 196 H, Calcium 6.8 L, Total Bilirubin 0.80, AST 37, ALT 34, Alkaline Phosphatase 132 H, Troponin I 0.223 H, Total Protein 6.1 L, Albumin 2.6 L, Globulin 3.5, Albumin/Globulin Ratio 0.7 L 02/16/21 21:13: Lactic Acid 2.4 H* 02/16/21 21:13: B-Natriuretic Peptide 164.0 H 02/17/21 00:30: Sodium 111 L*, Potassium 3.5, Chloride 76 L, Carbon Dioxide 26.0, Anion Gap 9, BUN 17, Creatinine 0.44 L, Estim Creat Clear Calc 100.82, Est GFR (MDRD) Af Amer 183, Est GFR (MDRD) Non-Af 151, BUN/Creatinine Ratio 38.3 H, Glucose 163 H, Calcium 6.9 L, Troponin I 1.520 H* 02/17/21 00:30: Lactic Acid 1.9 02/17/21 05:00: Sodium 113 L*, Potassium 3.9, Chloride 77 L, Carbon Dioxide 26.0, Anion Gap 10, BUN 16, Creatinine 0.39 L, Estim Creat Clear Calc 113.74, Est GFR (MDRD) Af Amer 211, Est GFR (MDRD) Non-Af 175, BUN/Creatinine Ratio 40.9 H, Glucose 162 H, Calcium 6.9 L, Troponin I 1.770 H* 02/17/21 05:00: WBC 18.0 H, RBC 4.18 L, Hgb 12.9, Hct 35.0 L, MCV 83.7, MCH 30.9, MCHC 36.9 H, RDW Std Deviation 42.2, RDW Coeff of Gina 13.8, Plt Count 299, MPV 8.1, Immature Gran % (Auto) 0.500, Neut % (Auto) 94.6 H, Lymph % (Auto) 1.1 L, [place] % (Auto) 3.7, Eos % (Auto) 0.0, Baso % (Auto) 0.1, Absolute Neuts (auto) 17.0 H, Absolute Lymphs (auto) 0.20 L, Nucleated RBC % 0 02/17/21 07:30: Urine Osmolality 526, Ur Random Sodium 19 02/17/21 07:30: Urine Color Yellow, Urine Clarity Sl. Cloudy, Urine pH 6.0, Ur Specific [place] 1.020, Urine Protein 100 H, Urine Glucose (UA) 100 H, Urine Ketones 150 H, Urine Occult Blood 250 H, Urine Nitrite Negative, Urine Bilirubin Negative, Urine Urobilinogen Normal, Ur Leukocyte Esterase Negative, Urine RBC 25-50 SEEN, Urine WBC 0 SEEN, Ur Squamous Epith Cells 0-5 SEEN, Urine Bacteria 1+, Urine Mucus 0 SEEN 02/17/21 08:00: MRSA (PCR) Negative 02/17/21 09:15: Sodium 114 L*, Potassium 3.9, Chloride 79 L, Carbon Dioxide 26.0, Anion Gap 9, BUN 16, Creatinine 0.36 L, Estim Creat Clear Calc 123.22, Est GFR (MDRD) Af Amer 235, Est GFR (MDRD) Non-Af 194, BUN/Creatinine Ratio 44.8 H, Glucose 153 H, Calcium 6.5 L* 02/17/21 09:15: Troponin I 1.310 H* 02/17/21 09:15: Lactate Dehydrogenase 598 H, Total Protein 5.8 L, Globulin 3.5, Albumin/Globulin Ratio 0.7 L, TSH 1.58 02/17/21 09:15: Serum Osmolality 249 L 02/17/21 10:50: Fluid Glucose 139 H, Fluid Total Protein 2.5, Fluid LDH 354 02/17/21 10:50: Fluid Source THORACENTESIS, Fluid Color YELLOW, Fluid Appearance SL CLDY, Fluid WBC 0.389, Fluid RBC 97, Fluid Tot Cell Count 0.477 H, Fld Polynuclear WBCs # 0.101, Fld Polynuclear WBCs % 26.0, Fluid Mononuclear WBCs 0.288, Fld Mononuclear WBCs % 74.0, Fluid Neutrophils 33, Fluid Lymphocytes 18, Fluid Monocytes 28, Fld Mesothelial Cells 21, Fl Pathologist Comment May follow, Fluid Comment 2 SEE COMMENT 02/17/21 13:00: Sodium 116 L*, Potassium 3.4 L, Chloride 82 L, Carbon Dioxide 28.0, Anion Gap 6, BUN 18, Creatinine 0.39 L, Estim Creat Clear Calc 113.74, Est GFR (MDRD) Af Amer 211, Est GFR (MDRD) Non-Af 175, BUN/Creatinine Ratio 46.0 H, Glucose 142 H, Calcium 7.1 L 02/17/21 13:00: Troponin I 1.170 H* 02/17/21 17:15: Sodium 118 L*, Potassium 4.4, Chloride 81 L, Carbon Dioxide 26.0, Anion Gap 11, BUN 19 H, Creatinine 0.47 L, Estim Creat Clear Calc 94.38, Est GFR (MDRD) Af Amer 172, Est GFR (MDRD) Non-Af 142, BUN/Creatinine Ratio 40.6 H, Glucose 132 H, Calcium 7.6 L, Troponin I 1.200 H* Current Medications Acetaminophen (Acetaminophen 325 Mg Tablet) 650 mg PO Q6H PRN PRN PRN Reason: Pain Score 1-10/Temp > 100.7 F Albuterol Sulfate (Albuterol 2.5 Mg/3 Ml Vial.Neb.) 2.5 mg INHALATION Q2H PRN PRN PRN Reason: SOB/Wheezing Calcium Carbonate (Calcium (Elemental) 500 Mg Tablet) 500 mg PO DAILYCM [facility] Last Admin: 02/17/21 07:52 Dose: 500 mg Documented by: Diltiazem HCl (Diltiazem Cd 180 Mg Capsule) 180 mg PO DAILY [facility] Last Admin: 02/17/21 07:52 Dose: 180 mg Documented by: Sodium Chloride () 1,000 mls @ 150 mls/hr IV .[id number] [facility] Last Infusion: 02/17/21 19:00 Dose: 150 mls/hr Documented by: Sodium Chloride () 250 mls @ 15 mls/hr IV .[id number] PRN PRN Reason: Saline Flush Last Infusion: 02/17/21 17:06 Dose: 15 mls/hr Documented by: Piperacillin Sod/Tazobactam (Sod 3.375 gm/ Sodium Chloride) 50 mls @ 12.5 mls/hr IV Q8 [facility] Last Infusion: 02/17/21 17:06 Dose: Infused Documented by: Vancomycin IV Pharmacy to Dose (1 each/ Sodium Chloride) 500 mls @ 250 mls/hr IV PRN PRN; Protocol PRN Reason: Rx to Dose Vancomycin HCl (Vancomycin) 1,000 mg in 200 mls @ 200 mls/hr IV Q12H [facility] Last Infusion: 02/17/21 21:20 Dose: Infused Documented by: Dexmedetomidine HCl 400 mcg/ (Sodium Chloride) 100 mls @ 6.438 mls/hr CONT INF .[id number] [facility]; Protocol Last Titration: 02/17/21 20:15 Dose: 0.9 mcg/kg/hr, 11.6 mls/hr Documented by: Labetalol HCl (Labetalol (Prefilled) 20 Mg/4 Ml) 10 mg IV Q4H PRN PRN PRN Reason: SBP more than 160 Last Admin: 02/17/21 01:59 Dose: 10 mg Documented by: Levothyroxine Sodium (Levothyroxine 88 Mcg Tablet) 88 mcg PO DAILY@0600 [facility] Last Admin: 02/17/21 05:08 Dose: 88 mcg Documented by: Metoprolol Succinate (Metoprolol(Xl)Succ 25 Mg Tablet) 25 mg PO DAILY [facility] Last Admin: 02/17/21 07:52 Dose: 25 mg Documented by: Ondansetron HCl (Ondansetron 4 Mg/2 Ml Vial) 4 mg IV Q8H PRN PRN PRN Reason: NAUSEA/VOMITING Senna/Docusate Sodium (Senna/Docusate Sodium 1 Tablet) 2 tablet PO BID [facility] Last Admin: 02/17/21 19:58 Dose: Not Given Documented by: Sodium Chloride (0.9% Saline Lock 10 Ml Syringe) 10 - 40 ml IV UD PRN PRN Reason: SALINE FLUSH Last Admin: 02/17/21 13:04 Dose: 10 ml Documented by: STROKE Vital Signs/Narrative: Vital Signs Temp Pulse Resp BP Pulse Ox 02/17/21 20:00 100 F H 99 30 H 116/91 H 93 02/17/21 19:33 96 02/17/21 19:25 94 26 H 95 02/17/21 19:00 92 24 H 123/92 H 94 02/17/21 18:00 100.0 F H 101 H 26 H 112/82 H 98 Medical Necessity - Tobacco Use Smoking Status: Never smoker Tobacco Use: Non-smoker Assessment/Plan All Active Problems (Last Reviewed 02/17/21 @ 13:[address] Aldo Hardy MD) Pleural effusion on right (Acute) Hypoxia (Acute) Hyponatremia (Acute) Leukocytosis (Acute) Elevated troponin (Acute) #Acute hypoxic respiratory failure due to recurrent pleural effusion * still tachypneic. On 60L of oxygen via AirVo * titraete oxygen to maintain sats>90% * for right sided thoracentesis today * pulmonology on board * #Right recurrent pleural effusion due to lung cancer * as above #Right sided iatrogenic pneumothorax * she had thoracentesis today; this was complicated by a right sided pneumothorax after procedure * general surgery consulted. She had a right sided chest tube placed * pulmonology also on board * #Sepsis due to probable pneumonia * SIRS criteria is 3/4 (tachypnea, tachycardia, leucocytosis) * CXR did show a large right pleural effusion with underlying mass and/or pneumonia * wasnt started on antibiotics at admission. Now on IV Zosyn and vancomycin. * blood cultures obtained * UA showed 1+ bacteria; will get urine culture #Elevated troponin * initial troponin was 0.223 and peaked at 1.77 * 2D echo showed moderate concentric LV hypertrophy, with EF of 60%, and moderately dilated RV with mild to moderate global RV systolic dysfunction, with PA systolic pressure of 60mmhg, and small pericardial effusion * CTA of the chest ordered to rule out PE in light of RV dysfunction and elevated troponins * #Hypocalcemia * calcium was 6.8 this morning, down to 6.5. WIll replace with calcium gluconate. Check Mg level * #Hyponatremia * Sodium was 110 on admission; now 113 * was started on normal saline at 60cc/hr on admission. * will consult nephrology * serum chloride is also low, and urine sodium is 19. Urine osmolality is 526 with a low serum osmolality of 249 * cause of hyponatremia is unclear, though the primary diagnosis of cancer could be playing a role; TSH is also pending * await nephro rec's. continue hydration with IVF * #History of small cell lung cancer * sees an oncologist at [facility] in [place], and is also enrolled in a clinical trial in [place] * to follow up with oncologist on outpatient basis. * #Hypertension: on metoprolol and cardizem #Hypothyroidism: on synthroid DVT prophylaxis: SCDs for now. Will await CTA of the chest to determine need for anticoagulation. Inpatient E&M: [id number] [facility] Hosp L3
[2021-02-17 22:45] LABS: Anion Gap 6 (5-15); BUN 21 mg/dL (7-18); BUN/Creat Ratio 51.5 RATIO (10-20); Calcium,Total 6.9 mg/dL (8.5-10.1); Chloride 86 mmol/L (98-107); Creatinine, Serum 0.41 mg/dL (0.55-1.02); EST Glomerular Filtration Rate 166 mL/min (>60); Est Glom Filt Rate - Afr Amer 201 mL/min (>60); Estimated Creatinine Clearance 108.19 ml/min; Glucose 140 mg/dL (74-106); Potassium 4.6 mmol/L (3.5-5.1); Sodium Level 116 mmol/L (136-145)
--- NOTE | 2021-02-17 23:11 | DS.PCM_ITS ---
Discharge Date and Diagnosis - Problem List Patient Problems: Active and Suspected Problems (Last Reviewed 02/17/21 @ 13:[address] Aldo Hardy MD) Pleural effusion on right (Acute) Hypoxia (Acute) Hyponatremia (Acute) Leukocytosis (Acute) Elevated troponin (Acute) Date of Admission: 02/16/21 - Primary Discharge Diagnosis Acute Problems: Active Problems (Last Reviewed 02/17/21 @ 13:[address] Aldo Hardy MD) Pleural effusion on right (Acute) Hypoxia (Acute) Hyponatremia (Acute) Leukocytosis (Acute) Elevated troponin (Acute) - Secondary Discharge Diagnosis Chronic Problems: Chronic Problems (Last Reviewed 02/17/21 @ 13:[address] Aldo Hardy MD) Lung cancer (Chronic) Hospital Course and Treatment Imaging Results: RAD/Chest 1 View (Portable) IMPRESSION: 1. Large right pleural effusion with underlying mass and/or pneumonia. 2. Opacities in the left lung suspicious for malignancy. Please correlate. US/Thoracentesis W US IMPRESSION: Successful image guided thoracentesis. Postprocedural pneumothorax. CT/CTA Chest W/WO Contrast IMPRESSION: 1. No pulmonary embolism or arterial dissection. 2. Small right pneumothorax with chest tube in place. 3. Airspace disease in the left lung consistent with pneumonia. 4. Right upper and lower lobe masses consistent with malignancy. Multiple bilateral metastases. RAD/Chest Insp/Exp 2 View IMPRESSION: Interval thoracentesis with decrease in size of the right pleural effusion and development of a pneumothorax, as described. RAD/CXR for Line Placement IMPRESSION: 1. Right chest tube. Nearly resolved right pneumothorax. 2. Multilobar airspace disease. Cardiology-[facility] Pulmonology-[facility] Nephrology-[facility] Surgery-[place] Operations: None Procedures: EKG, Thoracentesis, Transthoracic echo, - - Chest tube Summary of Care Provided: The patient is a 66 year old F who presented 1 day ago with increased shortness of breath due to patient has a history of outpatient thoracentesis. Patient is currently undergoing treatment for small cell lung cancer and follows with [facility]. This evening patient has become increasingly short of breath and hypoxic, currently on BiPAP 10/5, 100% FiO2. As that is where patient's oncologist was located. Patient also continues to be hyponatremic and hypochloremic, 116 and 86 respectively. Cardiac enzymes have been trending since admission, last value 1.2. During this admission patient has underwent thoracentesis which resulted in the right pneumothorax and a chest tube was placed. Patient Problems: Active and Suspected Problems (Last Reviewed 02/17/21 @ 13:[address] Aldo Hardy MD) Pleural effusion on right (Acute) Hypoxia (Acute) Hyponatremia (Acute) Leukocytosis (Acute) Elevated troponin (Acute) - Physical Exam Vitals/I&O's: Vital Signs Temp Pulse Resp BP Pulse Ox 100 F H 99 27 H 85/53 L 96 02/17/21 20:00 02/17/21 22:00 02/17/21 22:00 02/17/21 22:00 02/17/21 22:00 Oxygen Flow Rate (L/min) [3] 60 Oxygen Flow Rate (L/min) [2] 60 Oxygen Flow Rate (L/min) [1 ( 60 Initial Baseline)] Oxygen Flow Rate (L/min) 60 Oxygen Delivery Method [3] Airvo Oxygen Delivery Method [2] Airvo Oxygen Delivery Method [1 ( Airvo Initial Baseline)] Oxygen Delivery Method Bi-pap Weight: 113 lb 8.609 oz Body Mass Index (BMI) 20.7 Intake and Output for Last 24 Hours 02/15/21 02/16/21 02/17/21 23:59 23:59 23:59 Intake Total 2701.47 / 2701.47 Output Total 2160 / 2160 Balance 541.47 / 541.47 General: Alert, Disoriented HEENT: Atraumatic, PERRLA, EOMI, Normocephalic Neck: Supple, No JVD, Negative Carotid Bruits Lungs: Diminished, Rhonchi, Short of Breath, Using Accessory Muscles Cardiovascular: Regular rate, Regular Rhythm, Normal S1, Normal S2, No murmurs Abdomen: Bowel Sounds Present, Soft, Non Tender Extremities: No edema, Capillary Refill Less than 3 Seconds Skin: No rashes, No breakdown Musculoskeletal: No Tenderness to Palpation of Joints or Extremities Neurological: Cranial nerves II-XII grossly intact Psych/Mental Status: Restless Microbiology Past 72 Hours 02/17/21 10:50 Fluid - Thoracentesis Fluid Gram Stain - Final 02/16/21 22:05 Mucosa - Nose SARS-CoV-2 Antigen (Rapid) - Final Laboratory Results 02/17/21 00:30: Sodium 111 L*, Potassium 3.5, Chloride 76 L, Carbon Dioxide 26.0, Anion Gap 9, BUN 17, Creatinine 0.44 L, Estim Creat Clear Calc 100.82, Est GFR (MDRD) Af Amer 183, Est GFR (MDRD) Non-Af 151, BUN/Creatinine Ratio 38.3 H, Glucose 163 H, Calcium 6.9 L, Troponin I 1.520 H* 02/17/21 00:30: Lactic Acid 1.9 02/17/21 05:00: Sodium 113 L*, Potassium 3.9, Chloride 77 L, Carbon Dioxide 26.0, Anion Gap 10, BUN 16, Creatinine 0.39 L, Estim Creat Clear Calc 113.74, Est GFR (MDRD) Af Amer 211, Est GFR (MDRD) Non-Af 175, BUN/Creatinine Ratio 40.9 H, Glucose 162 H, Calcium 6.9 L, Troponin I 1.770 H* 02/17/21 05:00: WBC 18.0 H, RBC 4.18 L, Hgb 12.9, Hct 35.0 L, MCV 83.7, MCH 30.9, MCHC 36.9 H, RDW Std Deviation 42.2, RDW Coeff of Gina 13.8, Plt Count 299, MPV 8.1, Immature Gran % (Auto) 0.500, Neut % (Auto) 94.6 H, Lymph % (Auto) 1.1 L, [place] % (Auto) 3.7, Eos % (Auto) 0.0, Baso % (Auto) 0.1, Absolute Neuts (auto) 17.0 H, Absolute Lymphs (auto) 0.20 L, Nucleated RBC % 0 02/17/21 07:30: Urine Osmolality 526, Ur Random Sodium 19 02/17/21 07:30: Urine Color Yellow, Urine Clarity Sl. Cloudy, Urine pH 6.0, Ur Specific [place] 1.020, Urine Protein 100 H, Urine Glucose (UA) 100 H, Urine Ketones 150 H, Urine Occult Blood 250 H, Urine Nitrite Negative, Urine Bilirubin Negative, Urine Urobilinogen Normal, Ur Leukocyte Esterase Negative, Urine RBC 25-50 SEEN, Urine WBC 0 SEEN, Ur Squamous Epith Cells 0-5 SEEN, Urine Bacteria 1+, Urine Mucus 0 SEEN 02/17/21 08:00: MRSA (PCR) Negative 02/17/21 09:15: Sodium 114 L*, Potassium 3.9, Chloride 79 L, Carbon Dioxide 26.0, Anion Gap 9, BUN 16, Creatinine 0.36 L, Estim Creat Clear Calc 123.22, Est GFR (MDRD) Af Amer 235, Est GFR (MDRD) Non-Af 194, BUN/Creatinine Ratio 44.8 H, Glucose 153 H, Calcium 6.5 L* 02/17/21 09:15: Troponin I 1.310 H* 02/17/21 09:15: Lactate Dehydrogenase 598 H, Total Protein 5.8 L, Globulin 3.5, Albumin/Globulin Ratio 0.7 L, TSH 1.58 02/17/21 09:15: Serum Osmolality 249 L 02/17/21 10:50: Fluid Glucose 139 H, Fluid Total Protein 2.5, Fluid LDH 354 02/17/21 10:50: Fluid Source THORACENTESIS, Fluid Color YELLOW, Fluid Appearance SL CLDY, Fluid WBC 0.389, Fluid RBC 97, Fluid Tot Cell Count 0.477 H, Fld Polynuclear WBCs # 0.101, Fld Polynuclear WBCs % 26.0, Fluid Mononuclear WBCs 0.288, Fld Mononuclear WBCs % 74.0, Fluid Neutrophils 33, Fluid Lymphocytes 18, Fluid Monocytes 28, Fld Mesothelial Cells 21, Fl Pathologist Comment May follow, Fluid Comment 2 SEE COMMENT 02/17/21 13:00: Sodium 116 L*, Potassium 3.4 L, Chloride 82 L, Carbon Dioxide 28.0, Anion Gap 6, BUN 18, Creatinine 0.39 L, Estim Creat Clear Calc 113.74, Est GFR (MDRD) Af Amer 211, Est GFR (MDRD) Non-Af 175, BUN/Creatinine Ratio 46.0 H, Glucose 142 H, Calcium 7.1 L 02/17/21 13:00: Troponin I 1.170 H* 02/17/21 17:15: Sodium 118 L*, Potassium 4.4, Chloride 81 L, Carbon Dioxide 26.0, Anion Gap 11, BUN 19 H, Creatinine 0.47 L, Estim Creat Clear Calc 94.38, Est GFR (MDRD) Af Amer 172, Est GFR (MDRD) Non-Af 142, BUN/Creatinine Ratio 40.6 H, Glucose 132 H, Calcium 7.6 L, Troponin I 1.200 H* 02/17/21 22:00: Sodium 116 L*, Potassium 4.6, Chloride 86 L, Carbon Dioxide 24.0, Anion Gap 6, BUN 21 H, Creatinine 0.41 L, Estim Creat Clear Calc 108.19, Est GFR (MDRD) Af Amer 201, Est GFR (MDRD) Non-Af 166, BUN/Creatinine Ratio 51.5 H, Glucose 140 H, Calcium 6.9 L Current Medications Acetaminophen (Acetaminophen 325 Mg Tablet) 650 mg PO Q6H PRN PRN PRN Reason: Pain Score 1-10/Temp > 100.7 F Albuterol Sulfate (Albuterol 2.5 Mg/3 Ml Vial.Neb.) 2.5 mg INHALATION Q2H PRN PRN PRN Reason: SOB/Wheezing Calcium Carbonate (Calcium (Elemental) 500 Mg Tablet) 500 mg PO DAILYCM [facility] Last Admin: 02/17/21 07:52 Dose: 500 mg Documented by: Diltiazem HCl (Diltiazem Cd 180 Mg Capsule) 180 mg PO DAILY [facility] Last Admin: 02/17/21 07:52 Dose: 180 mg Documented by: Sodium Chloride () 1,000 mls @ 150 mls/hr IV .[id number] [facility] Last Infusion: 02/17/21 19:00 Dose: 150 mls/hr Documented by: Sodium Chloride () 250 mls @ 15 mls/hr IV .[id number] PRN PRN Reason: Saline Flush Last Infusion: 02/17/21 17:06 Dose: 15 mls/hr Documented by: Piperacillin Sod/Tazobactam (Sod 3.375 gm/ Sodium Chloride) 50 mls @ 12.5 mls/hr IV Q8 [facility] Last Admin: 02/17/21 22:30 Dose: 12.5 mls/hr Documented by: Vancomycin IV Pharmacy to Dose (1 each/ Sodium Chloride) 500 mls @ 250 mls/hr IV PRN PRN; Protocol PRN Reason: Rx to Dose Vancomycin HCl (Vancomycin) 1,000 mg in 200 mls @ 200 mls/hr IV Q12H [facility] Last Infusion: 02/17/21 21:20 Dose: Infused Documented by: Dexmedetomidine HCl 400 mcg/ (Sodium Chloride) 100 mls @ 6.438 mls/hr CONT INF .[id number] [facility]; Protocol Last Admin: 02/17/21 22:54 Dose: 1.5 mcg/kg/hr, 19.3 mls/hr Documented by: Labetalol HCl (Labetalol (Prefilled) 20 Mg/4 Ml) 10 mg IV Q4H PRN PRN PRN Reason: SBP more than 160 Last Admin: 02/17/21 01:59 Dose: 10 mg Documented by: Levothyroxine Sodium (Levothyroxine 88 Mcg Tablet) 88 mcg PO DAILY@0600 [facility] Last Admin: 02/17/21 05:08 Dose: 88 mcg Documented by: Metoprolol Succinate (Metoprolol(Xl)Succ 25 Mg Tablet) 25 mg PO DAILY [facility] Last Admin: 02/17/21 07:52 Dose: 25 mg Documented by: Ondansetron HCl (Ondansetron 4 Mg/2 Ml Vial) 4 mg IV Q8H PRN PRN PRN Reason: NAUSEA/VOMITING Senna/Docusate Sodium (Senna/Docusate Sodium 1 Tablet) 2 tablet PO BID [facility] Last Admin: 02/17/21 19:58 Dose: Not Given Documented by: Sodium Chloride (0.9% Saline Lock 10 Ml Syringe) 10 - 40 ml IV UD PRN PRN Reason: SALINE FLUSH Last Admin: 02/17/21 13:04 Dose: 10 ml Documented by: Home Medications: Medications to take at Discharge Calcium Carbonate [Oyster Shell Calcium] 1 tablet PO DAILY 02/16/21 Diltiazem HCl [Cartia Xt] 1 tablet PO DAILY 02/16/21 Levothyroxine [Synthroid] 88 mcg PO DAILY 02/16/21 Metoprolol Succinate 25 mg PO DAILY 02/16/21 Primary Care Physician: Terrance De La Cruz MD [Primary Care Provider] - Disposition: Acute care Hospital Minutes spent on discharge:: 45 Patient Condition:: Critical Medical Necessity - Tobacco Use Smoking Status: Never smoker Tobacco Use: Non-smoker Meaningful Use Info Meaningful Use Diagnoses (Choose all that apply): None applicable
[2021-02-18] VITALS: BP 77/52; PULSE 83; RESP 26; TEMP 37.7; O2SAT 96
[2021-02-18] MEDS: 0.9% Normal Saline 1,000 ML 150 ML IV (00:20)
[2021-02-18 01:00] VITALS: BP 76/50; PULSE 79; RESP 22; O2SAT 96
--- NOTE | 2021-02-18 02:19 | NURSING ---
0150- Pt transferred with [facility] staff. Pt belongings were given to staff to take. Belongings included: jeans, t-shirt, hoodie, underwear, socks, tennis shoes, glasses, and personal meds- synthroid 88mcg tabs, senna 8.6mg tabs, oyster shell calcium 500mg tabs, prednisone 20mg tabs, cardia XT 240mg caps. Patient's Genaro was called and let know she had left and was on her way to [facility].
[2021-02-18 11:18] LABS: Pathologist Comment/Body Fluid Reviewed
== END 2021-02-18 01:50 | disposition short-term general hospital (02) | DRG 871 ==
LOC: ED 23:02 → ICU 23:12
PROVIDERS: Internal Medicine Critical Care Medicine; Admitting Provider Hospitalist; Emergency Provider Emergency Medicine; PCP Internal Medicine; Visit Provider Student in an Organized Health Care Education/Training Program
DX: A41.9 Sepsis, unspecified organism (principal); J96.01 Acute respiratory failure with hypoxia; J18.9 Pneumonia, unspecified organism; J91.0 Malignant pleural effusion; C34.90 Malignant neoplasm of unspecified part of unspecified bronchus or lung; E87.1 Hypo-osmolality and hyponatremia; I31.3 Pericardial effusion (noninflammatory); J95.811 Postprocedural pneumothorax; K59.00 Constipation, unspecified; E83.51 Hypocalcemia; E86.1 Hypovolemia; E87.8 Other disorders of electrolyte and fluid balance, not elsewhere classified; Z79.899 Other long term (current) drug therapy
CPT/HCPCS: 32555; 71045; 71046; 71275; 80048; 80053; 81001; 82945; 83605; 83615; 83880; 83930; 83935; 84156; 84157; 84300; 84443; 84484; 85025; 85610; 85730; 87040; 87070; 87075; 87205; 87426; 87641; 88108; 88305; 88313; 88341; 88342; 89050; 93005; 93306; 94002; 94640; 99285; J7030; J7050; Q9957; Q9967; A4216; J0610